=== PATIENT | female | born 1970 | race Caucasian/White ===

== ENCOUNTER → 2021-03-21 00:09 | Outpatient (CLI) | payer OTHER, SELFPAY ==
[2021-03-21 13:23] LABS: SARS-CoV-2 RNA PCR Negative
== END ==
PROVIDERS: PCP Physician Assistant; Visit Provider Internal Medicine Gastroenterology
DX: Z01.812 Encounter for preprocedural laboratory examination (principal); Z20.822 Contact with and (suspected) exposure to COVID-19
CPT/HCPCS: C9803; U0003; U0005

== ENCOUNTER 2021-03-24 00:20 | Day surgery (SDC) | payer OTHER, SELFPAY ==
[2021-03-12 13:14] VITALS: BMI 41.6
[2021-03-24 08:53] VITALS: BP 148/89; PULSE 102; RESP 18; TEMP 36.3; O2SAT 95; BMI 42.9
[2021-03-24] MEDS: LACTATED RINGERS 1,000 ML 150 ML IV CONT (09:09)
--- NOTE | 2021-03-24 09:19 | WPDANESEPPF ---
Anes - Initial Pre Proc Eval Procedure: Operation Date: 03/24/21 10:00 Proposed Procedures p Esophagogastroduodenoscopy & Screening Colonoscopy - Angus Mohan MD Date/Time: 03/24/21 09:19 Surgeon: Angus Mohan MD Pre Op Diagnosis: epigastric pain, nausea Patient Data Age: 50 Gender: F Height: 1.55 m Weight: 103 kg Last Vital Signs Temp 36.3 C L 03/24/21 08:53 Pulse 102 H 03/24/21 08:53 Resp 18 03/24/21 08:53 BP 148/89 H 03/24/21 08:53 Pulse Ox 95 03/24/21 08:53 Allergies Allergy/AdvReac Type Severity Reaction Status Date / Time No Known Allergies Allergy Verified 03/24/21 09:08 Home Medications Medication Instructions Recorded Confirmed Type albuterol sulfate 90 mcg/actuation 2 puff INHALATION Q4H PRN g 01/30/21 03/12/21 History aerosol inhaler docusate sodium 100 mg capsule 100 mg PO BID 01/30/21 03/12/21 History omeprazole 20 mg capsule,delayed 20 mg PO DAILY 01/30/21 03/12/21 History release polyethylene glycol 3350 17 17 g PO DAILY 01/30/21 03/12/21 History gram/dose oral powder psyllium husk (with sugar) 3.4 1 tbsp PO DAILY 01/30/21 03/12/21 History gram/12 gram oral powder Patient hx anesthesia problems: none Family hx anesthesia problems: none Results Review: All pre-operative results and documents have been reviewed as part of the pre-operative evaluation. [facility] Past Medical History Medical History Hepatic steatosis Obese Pre-diabetes Pulmonary emphysema Tobacco abuse Family History Family History Mother COPD (chronic obstructive pulmonary disease) Social History Social History Smoking packs per day: 1.5 Smoking cigarettes per day: 30.0 Years smoked: 27 Smoking pack-years: 40.50 Smoking status: Current every day smoker Tobacco type: cigarettes Living arrangements: with family Spiritual care concerns: No Anes - Eval Final PreProcedure Day of Procedure 03/24/21 09:19 Patient weight: morbidly obese Heart: regular rate and rhythm Lungs: decreased breath sounds Airway: Mallampati scale class II Neurological: alert and oriented Last oral intake: >/= 8 hours ASA classification: III Emergent: no Anesthetic plan: proceed Anesthesia type and monitoring: general GIVS and standard monitoring Results Review: All pre-operative results and documents have been reviewed as part of the pre-operative evaluation. Informed Consent: The patient's anesthetic plan and its attendant risks and benefits were discussed with the patient/family/POA. Questions were solicited and answers provided to the satisfaction of the patient/family/POA.
--- NOTE | 2021-03-24 09:49 | PM.HPGS ---
History of Present Illness History of Present Illness Consent: Risks, benefits, and alternatives have been discussed and questions answered. Patient agrees to proceed with procedure. Chief complaint: epigastric pain, nausea Narrative: Danielle Bergeron is a 50 year old female with nausea, epigastric pain and bloating using omeprazole, never had scopes. Review of Systems Constitutional: Constitutional: Denies headache(s) and Denies weakness Eyes: Eyes: Denies blurry vision ENT: Reports Normal hearing present, Denies headache(s) and Denies neck pain Cardiovascular: Cardiovascular: Denies chest pain and Denies dyspnea Respiratory: Respiratory: Denies dyspnea Gastrointestinal: Gastrointestinal: Reports no additional gastrointestinal complaints Genitourinary: Genitourinary: Denies dysuria Musculoskeletal: Musculoskeletal: Denies neck pain Integumentary/Breasts: Skin/Breast: Denies dry skin Neurologic: Reports Normal hearing present, Denies headache(s) and Denies weakness Psychiatric: Psychiatric: Denies anxiety Endocrine: Endocrine: Denies change in body appearance Hematologic/Lymphatic: Hematologic/Lymphatic: Denies easy bleeding Allergic/Immunologic: Allergic/Immunologic: Denies urticaria PMF Past Medical History Medical History (Updated 03/24/21 @ 09:50 by Angus Mohan MD) Colon cancer screening Hepatic steatosis Nausea Obese Pre-diabetes Pulmonary emphysema Tobacco abuse Family History Family History Mother COPD (chronic obstructive pulmonary disease) Social History Social History Smoking packs per day: 1.5 Smoking cigarettes per day: 30.0 Years smoked: 27 Smoking pack-years: 40.50 Smoking status: Current every day smoker Tobacco type: cigarettes Living arrangements: with family Spiritual care concerns: No Meds Home Medications and Allergies Home Medications Medication Instructions Recorded Confirmed Type albuterol sulfate 90 mcg/actuation 2 puff INHALATION Q4H PRN g 01/30/21 03/12/21 History aerosol inhaler docusate sodium 100 mg capsule 100 mg PO BID 01/30/21 03/12/21 History omeprazole 20 mg capsule,delayed 20 mg PO DAILY 01/30/21 03/12/21 History release polyethylene glycol 3350 17 17 g PO DAILY 01/30/21 03/12/21 History gram/dose oral powder psyllium husk (with sugar) 3.4 1 tbsp PO DAILY 01/30/21 03/12/21 History gram/12 gram oral powder Allergies Allergy/AdvReac Type Severity Reaction Status Date / Time No Known Allergies Allergy Verified 03/24/21 09:08 Vital Signs Vital Signs - 24 hr 03/24/21 08:53 Temperature 97.3 F L Pulse Rate 102 H Respiratory Rate 18 Blood Pressure 148/89 H Pulse Oximetry 95 Exam Const: General: comfortable and no acute distress HENMT: General nose exam: Normal nares present Eyes: General: appearance normal, both eyes and all related structures Neck: Neck: no JVD Resp: Auscultation: clear to auscultation bilaterally Cardio: Rate: regular rate Rhythm: regular rhythm GI: Inspection: non-distended GI Palp: Yes Soft to palpation Skin: General skin exam: normal color Neuro: General: gait normal Speech: normal speech Extrem: General: normal to inspection Psych: Mental Status: mental status grossly normal Assessment and Plan Assessment and plan (1) Nausea: Code(s): R11.0 - Nausea Status: Acute Assessment and Plan: egd with bx, check for pud, h pylori, celiac, etc (2) Colon cancer screening: Code(s): Z12.11 - Encounter for screening for malignant neoplasm of colon Status: Acute Assessment and Plan: colonoscopy
--- NOTE | 2021-03-24 10:06 | SUR.OPER ---
EGD ended at 1003. Colonoscopy started at 1008.
[2021-03-24 10:22] VITALS: BP 130/75; PULSE 81; RESP 22; O2SAT 95
[2021-03-24 10:32] VITALS: BP 126/93; PULSE 80; RESP 19; O2SAT 98
[2021-03-24 10:42] VITALS: BP 136/97; PULSE 71; RESP 27; O2SAT 99
== END 2021-03-24 10:59 | disposition home or self-care (01) ==
PROVIDERS: PCP Physician Assistant; Visit Provider Internal Medicine Gastroenterology
PROC: 0DJ08ZZ Inspection of Upper Intestinal Tract, Via Natural or Artificial Opening Endoscopic (ICD-10-PCS; CPT 43235; principal; 2021-03-24 10:00)
DX: Z12.11 Encounter for screening for malignant neoplasm of colon (principal); D12.3 Benign neoplasm of transverse colon; D12.2 Benign neoplasm of ascending colon; D12.4 Benign neoplasm of descending colon; K57.30 Diverticulosis of large intestine without perforation or abscess without bleeding; K64.4 Residual hemorrhoidal skin tags; K64.8 Other hemorrhoids; K21.00 Gastro-esophageal reflux disease with esophagitis, without bleeding; K44.9 Diaphragmatic hernia without obstruction or gangrene; K29.50 Unspecified chronic gastritis without bleeding; K76.0 Fatty (change of) liver, not elsewhere classified; R73.03 Prediabetes; E66.01 Morbid (severe) obesity due to excess calories; Z68.41 Body mass index [BMI] 40.0-44.9, adult; F17.210 Nicotine dependence, cigarettes, uncomplicated; Z79.51 Long term (current) use of inhaled steroids
CPT/HCPCS: 45385; 43239; 88305; J2704; J7120

== ENCOUNTER 2024-06-19 00:49 | Day surgery (SDC) | payer OTHER, SELFPAY ==
[2024-06-04 14:55] VITALS: BMI 37.5
--- OUTSIDE RECORDS SUMMARY | 2024-06-19 00:51 | XMS_ITS | CONTINUITY OF CARE DOCUMENT ---
Author Name laci aguero Address Unknown Organization [facility] Address [address] [place] [address] [address] [place] [address] Phone [phone] Care Team Providers Care Land Development Project Manager Name Role Phone Bibi NELSON, Og Unavailable CHELSIE CHOUDHURY Unavailable Kalani Morocho MD Unavailable PROBLEMS Condition Status Date Provider Notes Cardiology examination active Og malik MD Coronary atherosclerosis active Og tovar MD Smoker active Og Mtz MD Prediabetes active Og Mtz MD Obesity active Og Mtz MD Pulmonary nodule, RLL, stabl e since 06/2020 active Og Mtz MD Sinus tachycardia active Og Mtz MD Dyspnea on exertion active Og Bonilla Dyslipidemia active Og Mtz MD Abnormal EKG active Og Mtz MD ?CATE completed - Og Mtz MD CATE on CPAP active Og Mtz MD ENCOUNTERS Date Type Provider Location Encounter Diag nosis 06/01 - 06/02 In-person encounter Office Visit Og Mtz MD [facility] ?[facility] on CPAP 04/24 - 04/26 In-person encounter Office Visit Og Mtz MD [facility] 08/13 - 08/14 In-person encounter Office Visit Og Mtz MD [facility] 06/01 - 06/02 In-person encounter Office Visit Og Mtz MD [facility] Cardiology examinationCoronary atherosclerosisSmokerPrediabetesObesityPulmonary nodule, RLL, stable since inus tachycardiaDyspnea on exertionDyslipidemiaAbnormal EKG VITAL SIGNS Date Observation Value Provider Body Mass Index (Ratio) 44.96 kg/m2 Juarez Villalpando blood pressure, cuff size regular Ja blood pressure, diastolic 95 mm[Hg] Ja [facility] blood pressure, systolic 150 mm[Hg] Jar [facility] pulse rate 65 /min Brett respiratory rate E&M 18 /min Brett oxygen saturation, oximetry 94 % Brett weight E&M 238 [lb_av] Brett y height E&M 61 [in_i] [facility] y Body Mass Index (Ratio) 44.78 kg/m2 Fabricio Mtz MD blood pressure, cuff size regular Ced [facility] blood pressure, diastolic 89 mm[Hg] [facility] blood pressure, systolic 124 mm[Hg] [facility] 92 [facility]min [facility] oxygen saturation, oximetry 95 % [facility] respiratory rate E&M 18 /min Suad Choudhary iller weight E&M 237 [lb_av] [facility] height E&M 61 [in_i] [facility] Body Mass Index (Ratio) 41.94 kg/m2 Fabricio Mtz MD blood pressure, diastolic 96 mm[Hg] [place] [facility] blood pressure, systolic 155 mm[Hg] Consuelo [facility] blood pressure, diastolic 96 mm[Hg] Sa ra Cobb blood pressure, systolic 155 mm[Hg] Jesse a Cobb oxygen saturation, oximetry 95 % Carolina Cobb respiratory rate E&M 19 /min Carolina Si ms pulse rate 95 /min Carolina Cobb weight E&M 222 [lb_av] Carolina Cobb height E&M 61 [in_i] Carolina Cobb blood pressure, cuff size regular Sa ra Cobb ALLERGIES No Known Drug Allergies HISTORY OF MEDICATION USE Medication Status Instructions Dates Provider Indications Com ments Symbicort 160-4.5 mcg/actuation HFA aerosol inhaler active Inhale 2 puff using inhaler twice a day Remedios Ladariussupriya Chaudhary Ellipta 100-25 mcg/dose blister with device completed Inhale 1 puff as directed every morning 1 - 3 Josephine Foster PA Specialist albuterol sulfate 90 mcg/actuation HFA aerosol inhaler active Suad Ramos aspirin 81 mg tablet,delayed release (DR/EC) active Take 1 tablet by mouth once a day Og Mtz MD omeprazole 20 mg capsule,delayed release(DR/EC) active Take 1 capsule by mouth once a day Og Mtz MD lisinopril 20 mg tablet active Take 1 tablet by mouth once a day Og Mtz MD oxybutynin chloride 5 mg tablet extended release 24hr active Take 1 tablet by mouth once a day Og Mtz MD atorvastatin 20 mg tablet active Take 1 tablet by mouth once a day Og Mtz MD SOCIAL HISTORY Date Observation Value Provider smoking/tobacco cess ation, patient education and counseling yes Og Mtz MD smoking history, tot al pack/day 1-2 Og Mtz MD cigarette use yes Og Mtz MD smoking status Current every day smoker Aamir Mtz MD smoking/tobacco cess ation, patient education and counseling yes Suad Ramos smoking history, tot al pack/day 1-2 Suad Ramos cigarette use yes Suad Ramos smoking status Current every day smoker Meaghan Ramos social history E&M S moking History: P atient currently smokes every day. P atient has been counseled to quit. Puneet Villalpando smoking/tobacco cess ation, patient education and counseling yes Puneet Villalpando smoking history, tot al pack/day 1-2 Puneet Villalpando cigarette use yes Puneet Villalpando smoking status Current every day smoker Juanis arias Irasema social history reviewed E&M revi ewed - no changes required Puneet Villalpando number of grandchildren Og Mtz MD social history E&M S moking History: P atient currently smokes every day. P atient has been counseled to quit. Og Mtz MD smoking/tobacco cess ation, patient education and counseling yes Og Mtz MD social history reviewed E&M revi ewed - no changes required Og Mtz MD smoking history, tot al pack/day 1-2 Carolina Cobb cigarette use yes Carolina Cobb smoking status Current every day smoker S gabriel Cobb FUNCTIONAL STATUS Date Observation Value Provider HRA, CV Assess/Plan, Angina (inactive) Management Plan continue current therapy Puneet Villalpando HRA, CV Assess/Plan, Angina (inactive) Management Plan continue current therapy Og Mtz MD HRA, CV Assess/Plan, Angina (inactive) Management Plan continue current therapy Puneet Villalpando HRA, CV Assess/Plan, Angina (inactive) Management Plan continue current therapy Og Mtz MD INSURANCE PROVIDERS Payer name Policy type / Coverage type [place] [employer] party [place] [employer] Medicaid [id number] ADVANCE DIRECTIVES Name Date DISCUSSED - NO DECISION MADE TREATMENT PLAN Date Name Performer [id number],S, Puneet Villalpando [id number],S, Puneet Rubi [id number],S, Puneet Rubi [id number],S, Puneet [facility] [id number],S, H er updated medication list for this problem includes: Atorvastatin 20 Mg Tablet (Atorvastatin) ..... Take 1 tablet by mouth once a day Puneet Villalpando [id number],S, H er updated medication list for this problem includes: Lisinopril 10 Mg Tablet (Lisinopril) ..... Take 1 tablet by mouth once a day Aspirin 81 Mg Tablet,delayed Release (dr/ec) (Aspirin) ..... Take 1 tablet by mouth once a day Puneet Villalpando [id number],W, H er updated medication list for this problem includes: Atorvastatin 20 Mg Tablet (Atorvastatin) ..... Take 1 tablet by mouth once a day Og Mtz MD [id number],N, Og Marrufo ra, [place] [id number],S, T he Patient was reencouraged to stop smoking. Og Mtz MD [id number],N, H er updated medication list for this problem includes: Lisinopril 10 Mg Tablet (Lisinopril) ..... Take 1 tablet by mouth once a day Aspirin 81 Mg Tablet,delayed Release (dr/ec) (Aspirin) ..... Take 1 tablet by mouth once a day Og Mtz MD [id number],W, Og Marrufo ra, MD Cardiology Puneet Villalpando Cardiology Puneet Villalpando Cardiology Puneet Villalpando Cardiology Puneet Villalpando Cardiology: H er updated medication list for this problem includes: Atorvastatin 20 Mg Tablet (Atorvastatin) ..... Take 1 tablet by mouth once a day Puneet Villalpando Cardiology Puneet Villalpando Cardiology Og Bonilla Cardiology Og Bonilla Cardiology Og Bonilla Cardiology Og Bonilla Cardiology Og Bonilla Cardiology Og Bonilla Cardiology Og Bonilla [facility], labwork, 1 month f/u [facility], labwork, 1 month f/u [facility], labwork, 1 month f/u [facility], labwork, 1 month f/u [facility], labwork, 1 month f/u: H er updated medication list for this problem includes: Atorvastatin 20 Mg Tablet (Atorvastatin) ..... Take 1 tablet by mouth once a day [facility], [facility], 1 month f/u: H er updated medication list for this problem includes: Lisinopril 10 Mg Tablet (Lisinopril) ..... Take 1 tablet by mouth once a day Aspirin 81 Mg Tablet,delayed Release (dr/ec) (Aspirin) ..... Take 1 tablet by mouth once a day Puneet Villalpando Cardiology: H er updated medication list for this problem includes: Atorvastatin 20 Mg Tablet (Atorvastatin) ..... Take 1 tablet by mouth once a day Og Mtz MD Cardiology Og Bonilla Cardiology: T he Patient was reencouraged to stop smoking. Og Mtz MD Cardiology: H er updated medication list for this problem includes: Lisinopril 10 Mg Tablet (Lisinopril) ..... Take 1 tablet by mouth once a day Aspirin 81 Mg Tablet,delayed Release (dr/ec) (Aspirin) ..... Take 1 tablet by mouth once a day Og Mtz MD Cardiology Og Bonilla Date Name LIPID PANEL Stress Regadenoson LIPID PANEL Low Dose Lung CT DLCO - 46733 FRC - 74811 FVC - 96594 Stress Regadenoson Complete Echo LIPID PANEL D-DIMER, QUANTITATIV E PROBNP, N TERMINAL D-DIMER, QUANTITATIV E PROBNP, N TERMINAL Stress Regadenoson Complete Echo HISTORY OF PROCEDURES Procedure Date Procedure Name Provider Procedure Notes S tatus Counseling LDCT Og Mtz MD co mpleted EKG Og Mtz MD complet ed
--- OUTSIDE RECORDS SUMMARY | 2024-06-19 00:51 | XMS_ITS | Data Portability ---
Author Organization [place] [facility] [employer], Main Office Address [address] [place] [address] Assessment No assessment recorded. Plan of Treatment Reminders Order Date Submit Date Provider Last Modified By Organization Details Last Modified Time Details Appointments None record ed. Lab None record ed. Referral None record ed. Procedures None record ed. Surgeries None record ed. Imaging None record ed. Medication Orders None record ed. Patient TargetsNo targets recorded. Patient InstructionsNo instructions recorded. Reason for Referral None Reported. Problems Name Problem SNOMED Code Status Onset Date Resolution Date Notes Provider Name and Address Organization Details Recorded Time Chronic back pain 919097489 Active Not Available [facility] 3 17:44:00 Enlarged uterus 562351083 Active Not Available [facility] 3 17:44:00 Genuine stress incontinence 18387210 Active Not Available [facility] 3 17:44:00 Menometrorrha aldo 907772040 Active Not Available [facility] 3 17:44:00 Problem Notes None recorded. Medical Equipment None Reported. Medications Name Sig Start Date Stop Date Status Note LastModified by Organization Details LastModified Time azithromyci n 250 mg tablet active Not Available Not Available Not Available hydrocodone 5 mg-acetamin ophen 325 mg tablet TK 1 T PO Q 4 TO 6 H PRN P 06/10 completed Not Available Not Available Not Available phenazopyri dine 200 mg tablet active Not Available Not Available Not Available prednisone 20 mg tablet TK 1 T PO BID FOR 7 DAYS active Not Available Not Available No t Available penicillin V potassium 500 mg tablet active Not Available Not Available Not Available sulfamethox azole 800 mg-trimetho prim 160 mg tablet active Not Available Not Available Not Available oxycodone-a cetaminophe n 5 mg-325 mg tablet TK 1-2 TS PO Q 6 H PRN P active Not Available Not Available No t Available Kenalog 10 mg/mL suspension for injection In office injection administe red by the provider active [facility]: 0003- 0494- 20 Not Available Not Available Not Available benzonatate 100 mg capsule active Not Available Not Available Not Available pantoprazol e 40 mg tablet,neo yed release 10/03 completed Not Available Not Available Not Available naproxen sodium 550 mg tablet TK 1 T PO Q 12 HOURS active Not Available Not Available No t Available nystatin 100,000 unit/gram topical cream APPLY TOPICALLY TO THE AFFECTED AREA TWICE DAILY active Not Available Not Available No t Available misoprostol 200 mcg tablet TK 2 TS PO AT BEDTIME ONCE active Not Available Not Available No t Available omeprazole 20 mg capsule,del ayed release TAKE 1 CAPSULE BY MOUTH EVERY DAY active Not Available Not Available No t Available ibuprofen 600 mg tablet Take 1 tablet every 8 hours by oral route as needed. active Not Available Not Available No t Available methylpredn isolone 4 mg tablets in a dose pack 10/03 completed Not Available Not Available Not Available albuterol sulfate HFA 90 mcg/actuati on aerosol inhaler INHALE 2 PUFFS BY MOUTH EVERY 4 HOURS NEEDED active Not Available Not Available No t Available naproxen 500 mg tablet TAKE 1 TABLET BY MOUTH TWICE DAILY WITH FOOD 06/10 completed Not Available Not Available Not Available metoclopram rj 10 mg tablet 10/03 completed Not Available Not Available Not Available lidocaine (PF) 10 mg/mL (1 %) injection solution In office injection administe red by the provider active [facility]: 0409- 4276- 17 Not Available Not Available Not Available Vitals Date Recorded Body mass index (BMI) Body height Pain severity - 0-10 verbal numeric rating [Score] - Reported Body weight Provider Name and Address Organization Details Last Updated DateTime 06/10/2020 40.2 kg/m2 157.48 cm 5 72837.32 g Not Available [facility] 04/21/2022 17:43:29 Social History Question Answer Notes LastModified by Organizat ion Details LastModified Time Tobacco Smoking Status Current Every Day Smoker Not Available [facility] 04/21/2022 17:42:48 What Was The Date Of Your Most Recent Tobacco Screening? 06/10/2020 [id number] Information not available 04/21/2022 How Much Tobacco Do You Smoke? 1 PPW [id number] Information not available 04/21/2022 How Many Years Have You Smoked Tobacco? 35 [id number] Information not available 04/21/2022 Sex: Unknown Functional Status None recorded. Mental Status None recorded. Family History Relationship Description Onset Age of this Age Resolved Age Notes LastModified by Organization Details LastModified Time Father Family history of malignant neoplasm [id number] Not available 04/21/2022 17:42:51 Sister Family history of malignant neoplasm [id number] Not available 04/21/2022 17:42:51 Notes:Father's fm lung cance r - otherwise hx unknown sj Medical History Condition Response BLINDNESS N HEART VALVE DISORDERS N KIDNEY STONES N MRSA N CARPAL TUNNEL SYNDROME N ALLERGIES/HAYFEVER N INFECTIOUS DISEASE N LUNG DISEASE/DISORDER N HEART ARRHYTHMIA N HISTORY OF DRUG ABUSE N INSOMNIA N COPD N RADIATION / CHEMOTHERAPY N RHEUMATOID ARTHRITIS N HIGH CHOLESTEROL / HYPERLIPIDEMIA N BLOOD DISEASES N EDEMA N CHRONIC PAIN SYNDROME N CAROTID BLOCKAGE N SCHIZOPHRENIA N BOWEL PROBLEMS N DEPRESSION (INCLUDING POST ) N BACK / NECK PROBLEMS N HAVE YOU BEEN HOSPITALIZED OR SEEN IN [facility] IN THE PAST YEAR ? N STROKE/TIA N BURSITIS N ULCERS N BENIGN PROSTATIC HYPERPLASIA N HERNIATED DISC N DIALYSIS N OBESITY N GERD/NAUSEA N ANEURYSM N FIBROMYALGIA N OSTEOPOROSIS N URINARY/BLADDER/KIDNEY PROBLEMS N CORONARY ARTERY DISEASE (CAD) N ADDICTION CONCERNS N ARTHRITIS N USE OF BLOOD THINNERS N NO SIGNIFICANT PAST MEDICAL HISTORY N PERIPHERAL NEUROPATHY N SKIN PROBLEMS N DIABETES, TYPE N EMPHYSEMA N HEARTBURN / REFLUX N MUSCLE,JOINT OR BONE PROBLEMS N DVT N STOMACH ULCERS N BLOOD CLOTS N HEPATITIS / LIVER DISEASE N USE OF NSAIDS N CONCUSSION OR SPINAL TRAUMA N GOUT N SLEEP DISORDER N ALZHEIMER'S DISEASE N HERPES N HEADACHES/MIGRAINES N SEIZURES/EPILEPSY N VASCULAR DISEASE N Blood Disorder N DIZZINESS N HEAD TRAUMA OR INJURY N HEART DISEASE/HEART PROBLEMS N NEUROPATHY N AIDS/HIV N FRACTURES N MULTIPLE SCLEROSIS N HYPERTENSION N CARDIAC ARRHYTHMIA N CANCER: SPECIFY N ANXIETY DISORDER N Metal allergy N BLOOD TRANSFUSION N ANESTHESIA COMPLICATIONS N ANEMIA/BLOOD DISORDER N ATRIAL FIBRILLATION N BIPOLAR DISORDER N BRONCHITIS N AUTOIMMUNE DISEASE N OSTEOARTHRITIS N TUBERCULOSIS N FOOT PROBLEM N Gynecological HistoryNo gynecological history recorded. Obstetrics History GPAL:G 0 P 0 0 0 0 Past Encounters Encounter ID Performer Location Encounter Start Date Encounter Closed Date Diagnosis/Indication Diagnosis SNOMED-CT Code Diagnosis ICD10 Code Diagnosis Note [id number] [facility] [address] [place] [address] 06/10/2020 00:00:00 06/10/2020 10:32:33 Health Concerns Section Related Observation LastModified by Organization Detai ls LastModified Time None Recorded Concern Status LastModified by Organization Details LastModified Time None Recorded Advance Directives Directive None Recorded Payers None recorded. OBGyn Episode No OBEpisode recorded.
--- OUTSIDE RECORDS SUMMARY | 2024-06-19 00:51 | XMS_ITS | Continuity of Care Document ---
Author Organization [facility] Address [address] [place] [address] [place] [address] Phone Care Team Providers Care Construction Millwright Name Role Phone Mike Allen MD Unavailable Unavailable Advance Directives Directive Yes / No Effective Date File Name No Information Encounters Encounter Description Practice Location Reason(s) For Visit Diagnoses Date Provider Providers Copied on Encounter [facility], [address] [place], [id number], [place] tel:[phone] [facility] No Information Alejandro Mckeon. [address] [facility] [place], [id number], [place]. tel:[phone] Family History Family Member Type Diagnosis Age At Onset No Information Payers Payer name Insurance type Covered democrat ID Authoriza tion(s) No Information Social History Type Description Quantity Date Captured Comments Sex Female Smoking Status No Information Chief Complaint And Reason For Visit No Information Plan Of Treatment Date Type Action Status No Information History Of Present Illness Encounter Date Complaint History Of Prese nt Illness No Information Instructions Date Instruction Additional Infor mation No Information Assessments Type Assessment Date No Information
--- OUTSIDE RECORDS SUMMARY | 2024-06-19 00:51 | XMS_ITS | Data Portability ---
Author Organization [facility] Address [address] [place] [address] Care Team Providers Care Lease Buyer Name Role Phone SANDRASTACEYTaylor CHELSIE Primary Care Provider Assessment No assessment recorded. Plan of Treatment Reminders Order Date Submit Date Provider Last Modified By Organization Details Last Modified Time Details Appointments ANY 30 2024 10:30A M Kalani Morocho MD Not available Not available Not available Lab urinalys is, dipstick 2024 025 adolph In-Office Order, Internal Use Only DO Not Attach Compendium DO Not Attach Compendium, Do Not Delete/merge, [id number] 05/01/2024 09:13:25 culture, urine 2024 025 [facility], [address] [place] [address], [address], [place], [address], 05/02/2024 06:22:14 lipid panel, serum 2024 025 [facility], [address] [place] [address], [address], [place], [address], 04/27/2024 10:18:03 TSH, ultra-se nsitive, serum 2024 025 [facility], [address] [place] [address], [address], [place], [address], 04/27/2024 10:18:06 urinalys is complete , reflex culture 2024 025 [facility], [address], [address], [place], [address], 04/27/2024 10:18:07 CMP, serum or plasma 2024 025 [facility], [address], [address], [place], [address], 04/27/2024 10:18:04 CBC 2024 025 [facility], [address], [address], [place], [address], 04/27/2024 10:18:09 albumin/ creatini ne, mass ratio, urine 2024 025 [facility], [address], [address], [place], [address], 04/27/2024 10:18:02 lipid panel, serum 2023 024 [facility], [address], [address], [place], [address], 04/21/2023 06:18:50 CMP, serum or plasma 2023 024 [facility], [address], [address], [place], [address], 04/21/2023 06:18:51 CBC 2023 024 [facility], [address], [address], [place], [address], 04/21/2023 06:18:52 HbA1c (hemoglo bin A1c), blood 2023 024 [facility], [address], [address], [place], [address], 04/21/2023 06:18:51 urinalys is, dipstick 2023 024 [facility], [address], [address], [place], [address], 04/20/2023 19:08:34 HbA1c (hemoglo bin A1c), blood 2022 023 [email or web address] 1 In-Office Order, Internal Use Only DO Not Attach Compendium DO Not Attach Compendium, Do Not Delete/merge, [id number] 09/09/2022 09:44:25 Referral None recorded . Procedures None recorded . Surgeries None recorded . Imaging MAMMO, screenin g, bilatera l 2022 023 [facility] ([facility]), [address] [place], [address], 05/27/2023 11:31:45 LDCT, chest, for lung cancer screenin g 2022 023 [facility] ([facility]), [address] [place], [address], 11/25/2022 13:22:33 Medication Orders nicotine 21 mg/24 hr daily transder mal patch 2024 025 [facility][id number], [address], [place], [id number], 04/18/2024 19:21:04 nicotine 14 mg/24 hr daily transder mal patch 2024 025 [facility] #[id number], [address], [place], [id number], 04/18/2024 19:21:05 omeprazo le 20 mg capsule, delayed release 2024 025 [facility] #[id number], [address], [place], [place], [id number], 04/12/2024 11:14:41 Flonase Allergy Relief 50 mcg/actu ation nasal spray,garcia spension 2024 025 [facility] #75252, [address], [place], [place], [id number], 04/12/2024 11:14:40 aspirin 81 mg tablet,d elayed release 2024 025 [facility] #06208, [address], [place], [place], [id number], 04/12/2024 11:14:44 metformi n 500 mg tablet 2024 025 [facility] #58055, [address], [place], [place], [id number], 04/12/2024 11:14:50 albutero l sulfate HFA 90 mcg/actu ation aerosol inhaler 2024 025 [facility] #10025, [address], [place], [place], [id number], 04/12/2024 11:14:45 Advair HFA 230 mcg-21 mcg/actu ation aerosol inhaler 2024 025 [facility] #89908, [address], [place], [place], [id number], 04/12/2024 11:14:47 atorvast atin 40 mg tablet 2024 025 [facility] #07182, [address], [place], [place], [id number], 04/12/2024 11:14:41 lisinopr il 20 mg tablet 2024 025 [facility] #16673, [address], [place], [place], [id number], 04/12/2024 11:14:48 omeprazo le 20 mg capsule, delayed release 2023 024 [facility] #32834, [address], [place], [place], [id number], 04/20/2023 10:04:22 aspirin 81 mg tablet,d elayed release 2023 024 [facility] #68876, [address], [place], [place], [id number], 04/20/2023 10:04:22 albutero l sulfate HFA 90 mcg/actu ation aerosol inhaler 2023 024 [facility] #25032, [address], [place], [place], [id number], 04/20/2023 10:04:21 aspirin 81 mg tablet,d elayed release 2022 023 [email or web address] 1 [facility] #82756, [address], [place], [place], [id number], 09/09/2022 09:44:25 lisinopr il 10 mg tablet 2022 023 [email or web address] [facility] #89980, [address], [place], [place], [id number], 06/03/2023 17:51:34 atorvast atin 20 mg tablet 2022 023 [facility]370, [address], [place], [place], [id number], 04/12/2024 10:07:25 Patient TargetsNo targets recorded. Patient Instructions Encounter Date Encounter Id Patient Instructions Last Modified By Organization Details Last Modified Time 09/09/2022 [id number] A healthy lifestyle: care instructions Not available 09/09/2022 09:44:25 Quitting Tobacco : Care Instructions Not available 09/09/2022 09:44:25 AUGUST Nunez Discussed with FRANCISCO [email or web address] Not available 09/09/2022 09:44:03 12/17/2022 [id number] A healthy lifestyle: care instructions Not available 12/17/2022 10:58:45 Quitting Tobacco : Care Instructions Not available 12/17/2022 10:58:45 learning about breast cancer screening Not available 12/17/2022 10:59:01 Kayd KOCH Discussed with Sarah [email or web address] Not available 12/17/2022 11:25:38 04/12/2024 [id number] A healthy lifestyle: care instructions [email or web address] Not available 04/12/2024 11:14:29 Reason for Referral None Reported. Results Created Date Observation Date Name Description Value Unit Range Abnormal Flag Note LastModifiedBy Organization Detail LastModifiedTime 09/10/1909/09/2022 HbA1c (hemo globi n A1c), blood HbA1c 6.0% Not Available In-Office Order Internal Use Only DO Not Attach Compendium DO Not Attach Compendium, Do Not Delete/merge, [id number] 09/09/2022 09:25:35 04/20/1904/20/2023 URINA LYSIS , ROUTI NE specific gravity See below: 1.005- 1.030 abnormal <=1.0 05 Not Available [facility] [address] [place], [address], 04/20/2023 19:08:34 04/20/19 24 04/20/2023 URINA LYSIS , ROUTI NE pH 6.5 5.0-7. 0 Not Available [facility] [address] [place], [address], 04/20/2023 19:08:34 04/20/19 24 04/20/2023 URINA LYSIS , ROUTI NE urine-color YELLOW yellow Not Available [facility] [address], [place], [address], 04/20/2023 19:08:34 04/20/19 24 04/20/2023 URINA LYSIS , ROUTI NE appearance CLEAR Not Available [facility] [address], [place], [address], 04/20/2023 19:08:34 04/20/19 24 04/20/2023 URINA LYSIS , ROUTI NE WBC esterase Commen t NEGAT RIP Not Available [facility] [address], [place], [address], 04/20/2023 19:08:34 04/20/19 24 04/20/2023 URINA LYSIS , ROUTI NE protein Commen t NEGAT RIP Not Available [facility] [address], [place], [address], 04/20/2023 19:08:34 04/20/19 24 04/20/2023 URINA LYSIS , ROUTI NE glucose Commen t NEGAT RIP Not Available [facility] [address], [place], [address], 04/20/2023 19:08:34 04/20/19 24 04/20/2023 URINA LYSIS , ROUTI NE ketones Commen t NEGAT RIP Not Available [facility] [address], [place], [address], 04/20/2023 19:08:34 04/20/19 24 04/20/2023 URINA LYSIS , ROUTI NE occult blood Commen t NEGAT RIP Not Available [facility] [address], [place], [address], 04/20/2023 19:08:34 04/20/19 24 04/20/2023 URINA LYSIS , ROUTI NE bilirubin Commen t NEGAT RIP Not Available [facility] [address], [place], [address], 04/20/2023 19:08:34 04/20/19 24 04/20/2023 URINA LYSIS , ROUTI NE urobilinogen ,semi-qn 0.2 eu/dL 0.2-1. 0 Not Available [facility] [address], [place], [address], 04/20/2023 19:08:34 04/20/19 24 04/20/2023 URINA LYSIS , ROUTI NE nitrite, urine Commen t negati ve NEGAT RIP Not Available [facility] [address] [facility], [place], [address], 04/20/2023 19:08:34 04/20/19 24 04/21/2023 LIPID PANEL cholesterol, total 197 mg/dL 100-19 9 Not Available [facility] ([facility]) [address] [place], [address], 04/21/2023 06:18:50 04/20/19 24 04/21/2023 LIPID PANEL triglyceride s 195 mg/dL 0-149 above high normal Not Available [facility] ([facility]) [address] [place], [address], 04/21/2023 06:18:50 04/20/19 24 04/21/2023 LIPID PANEL HDL cholesterol 41 mg/dL >39 Not Available [facility]) [address] [place], [address], 04/21/2023 06:18:50 04/20/19 24 04/21/2023 LIPID PANEL VLDL cholesterol pamela 34 mg/dL 5-40 Not Available [facility]) [address] [place], [address], 04/21/2023 06:18:50 04/20/19 24 04/21/2023 LIPID PANEL LDL chol calc ([facility]) 122 mg/dL 0-99 above high normal Not Available [facility] ([facility]) [address] [place], [address], 04/21/2023 06:18:50 04/20/19 24 04/21/2023 COMP. METAB OLIC PANEL (14) glucose 86 mg/dL 70-99 Not Available [facility] ([facility]) [address] [place], [address], 04/21/2023 06:18:51 04/20/19 24 04/21/2023 COMP. METAB OLIC PANEL (14) BUN 14 mg/dL 6-24 Not Available [facility] ([facility]) [address] [place], [address], 04/21/2023 06:18:51 04/20/19 24 04/21/2023 COMP. METAB OLIC PANEL (14) creatinine 0.69 mg/dL 0.57-1 .00 Not Available [facility] ([facility]) [address] [place], [address], 04/21/2023 06:18:51 04/20/19 24 04/21/2023 COMP. METAB OLIC PANEL (14) eGFR 103 mL/mi n/1.7 3 >59 Not Available [facility] ([facility]) [address] [place], [address], 04/21/2023 06:18:51 04/20/19 24 04/21/2023 COMP. METAB OLIC PANEL (14) BUN/creatini ne ratio 10 11- Not Available [facility] ([facility]) [address] [place], [address], 04/21/2023 06:18:51 04/20/19 24 04/21/2023 COMP. METAB OLIC PANEL (14) sodium 139 mmol/ L 134-14 4 Not Available [facility] ([facility]) [address] [facility] [place], [address], 04/21/2023 06:18:51 04/20/19 24 04/21/2023 COMP. METAB OLIC PANEL (14) potassium 4.6 mmol/ L 3.5-5. 2 Not Available [facility] ([facility] [address] [facility] [place], [address], 04/21/2023 06:18:51 04/20/19 24 04/21/2023 COMP. METAB OLIC PANEL (14) chloride 102 mmol/ L 96-106 Not Available [facility] ([facility]) [address] [facility] [place], [address], 04/21/2023 06:18:51 04/20/19 24 04/21/2023 COMP. METAB OLIC PANEL (14) carbon dioxide, total 24 mmol/ L 20- Not Available [facility] ([facility]) [address] [facility] [place], [address], 04/21/2023 06:18:51 04/20/19 24 04/21/2023 COMP. METAB OLIC PANEL (14) calcium 10.1 mg/dL 8.7-10 .2 Not Available [facility] ([facility]) [address] [facility] [place], [address], 04/21/2023 06:18:51 04/20/19 24 04/21/2023 COMP. METAB OLIC PANEL (14) protein, total 7.1 g/dL 6.0-8. 5 Not Available [facility] ([facility]) [address] [facility] [place], [address], 04/21/2023 06:18:51 04/20/19 24 04/21/2023 COMP. METAB OLIC PANEL (14) albumin 4.3 g/dL 3.8-4. 9 Not Available [facility] ([facility]) [address] [facility], [place], [address], 04/21/2023 06:18:51 04/20/19 24 04/21/2023 COMP. METAB OLIC PANEL (14) globulin, total 2.8 g/dL 1.5-4. 5 Not Available [facility] ([place] [place] [facility]) [address] [place], [address], 04/21/2023 06:18:51 04/20/19 24 04/21/2023 COMP. METAB OLIC PANEL (14) A/G ratio 1.5 1.2-2. 2 Not Available [facility] ([facility]) [address] [place], [address], 04/21/2023 06:18:51 04/20/19 24 04/21/2023 COMP. METAB OLIC PANEL (14) bilirubin, total 0.2 mg/dL 0.0-1. 2 Not Available [facility] ([facility]) [address] [place], [address], 04/21/2023 06:18:51 04/20/19 24 04/21/2023 COMP. METAB OLIC PANEL (14) alkaline phosphatase 102 IU/L 44-121 Not Available [facility]) [address] [place], [address], 04/21/2023 06:18:51 04/20/19 24 04/21/2023 COMP. METAB OLIC PANEL (14) AST (SGOT) 16 IU/L 0-40 Not Available [facility] [address] [facility] [place], [address], 04/21/2023 06:18:51 04/20/19 24 04/21/2023 COMP. METAB OLIC PANEL (14) ALT (SGPT) 15 IU/L 0-32 Not Available [facility] ([facility]) [address] [facility] [place], [address], 04/21/2023 06:18:51 04/20/19 24 04/21/2023 HEMOG LOBIN A1C hemoglobin A1C 5.9 % 4.8-5. 6 above high normal Predi abete s: 5.7 - 6.4 Diabe tamika: >6.4 Glyce jacqueline contr ol for adult s with diabe tamika: <7.0 Not Available [facility] ([facility]) [address] [place], [address], 04/21/2023 06:18:51 04/20/19 24 04/20/2023 CBC, PLATE LET, NO DIFFE RENTI AL WBC 11.2 x10e3 /uL 3.4-10 .8 above high normal Not Available [facility] ([facility]) [address] [place], [address], 04/21/2023 06:18:52 04/20/19 24 04/20/2023 CBC, PLATE LET, NO DIFFE RENTI AL RBC 5.16 x10e6 /uL 3.77-5 .28 Not Available [facility] ([facility]) [address] [place], [address], 04/21/2023 06:18:52 04/20/19 24 04/20/2023 CBC, PLATE LET, NO DIFFE RENTI AL hemoglobin 15.4 g/dL 11.1-1 5.9 Not Available [facility] ([facility]) [address] [place], [address], 04/21/2023 06:18:52 04/20/19 24 04/20/2023 CBC, PLATE LET, NO DIFFE RENTI AL hematocrit 46.7 % 34.0-4 6.6 above high normal Not Available [facility] ([facility]) [address] [place], [address], 04/21/2023 06:18:52 04/20/19 24 04/20/2023 CBC, PLATE LET, NO DIFFE RENTI AL MCV 91 fL 79-97 Not Available [facility] ([facility]) [address] [facility], [place], [address], 04/21/2023 06:18:52 04/20/19 24 04/20/2023 CBC, PLATE LET, NO DIFFE RENTI AL MCH 29.8 pg 26.6-3 3.0 Not Available [facility] ([facility]) [address] [place], [address], 04/21/2023 06:18:52 04/20/19 24 04/20/2023 CBC, PLATE LET, NO DIFFE RENTI AL MCHC 33.0 g/dL 31.5-3 5.7 Not Available [facility] ([facility]) [address] [facility], [place], [address], 04/21/2023 06:18:52 04/20/19 24 04/20/2023 CBC, PLATE LET, NO DIFFE RENTI AL RDW 13.2 % 11.7-1 5.4 Not Available [facility] ([facility]) [address] [place], [address], 04/21/2023 06:18:52 04/20/19 24 04/20/2023 CBC, PLATE LET, NO DIFFE RENTI AL platelets 296 x10e3 /uL 150-45 0 Not Available [facility] ([facility]) [address] [place], [address], 04/21/2023 06:18:52 04/27/1904/27/2024 ALBUM IN/CR EATIN INE RATIO ,URIN E creatinine, urine 41.0 mg/dL notest ab. Not Available [facility] ([facility]) [address] [place], [address], 04/27/2024 10:18:01 04/27/19 25 04/27/2024 ALBUM IN/CR EATIN INE RATIO ,URIN E albumin, urine <3.0 ug/mL notest ab. Not Available [facility] ([facility]) [address] [facility], [place], [address], 04/27/2024 10:18:01 04/27/19 25 04/27/2024 ALBUM IN/CR EATIN INE RATIO ,URIN E alb/creat ratio <7 Sharonda l: 0 - 29 Moder ately incre ased: 30 - 300 Sever roro incre ased: >300 Not Available [facility] ([facility]) [address] [place], [address], 04/27/2024 10:18:01 04/27/19 25 04/27/2024 LIPID PANEL cholesterol, total 132 mg/dL 100-19 9 Not Available [facility] ([facility]) [address] [facility], [place], [address], 04/27/2024 10:18:03 04/27/19 25 04/27/2024 LIPID PANEL triglyceride s 76 mg/dL 0-149 Not Available [facility] ([facility]) [address] [place], [address], 04/27/2024 10:18:03 04/27/19 25 04/27/2024 LIPID PANEL HDL cholesterol 43 mg/dL >39 Not Available [facility]) [address] [place], [address], 04/27/2024 10:18:03 04/27/19 25 04/27/2024 LIPID PANEL VLDL cholesterol pamela 15 mg/dL 5-40 Not Available [facility]) [address] [place], [address], 04/27/2024 10:18:03 04/27/19 25 04/27/2024 LIPID PANEL LDL chol calc ([facility]) 74 mg/dL 0-99 Not Available [facility]) [address] [place], [address], 04/27/2024 10:18:03 04/27/19 25 04/27/2024 COMP. METAB OLIC PANEL (14) glucose 107 mg/dL 70-99 above high normal Not Available [facility] ([facility]) [address] [place], [address], 04/27/2024 10:18:04 04/27/19 25 04/27/2024 COMP. METAB OLIC PANEL (14) BUN 10 mg/dL 6-24 Not Available [facility] ([facility]) [address] [place], [address], 04/27/2024 10:18:04 04/27/19 25 04/27/2024 COMP. METAB OLIC PANEL (14) creatinine 0.67 mg/dL 0.57-1 .00 Not Available [facility] ([facility]) [address] [place], [address], 04/27/2024 10:18:04 04/27/19 25 04/27/2024 COMP. METAB OLIC PANEL (14) eGFR 103 mL/mi n/1.7 3 >59 Not Available [facility] ([facility]) [address] [place], [address], 04/27/2024 10:18:04 04/27/19 25 04/27/2024 COMP. METAB OLIC PANEL (14) BUN/creatini ne ratio 15 9-23 Not Available [facility]) [address] [place], [address], 04/27/2024 10:18:04 04/27/19 25 04/27/2024 COMP. METAB OLIC PANEL (14) sodium 142 mmol/ L 134-14 4 Not Available [facility] ([facility]) [address] [place], [address], 04/27/2024 10:18:04 04/27/19 25 04/27/2024 COMP. METAB OLIC PANEL (14) potassium 4.3 mmol/ L 3.5-5. 2 Not Available [facility] ([facility]) [address] [place], [address], 04/27/2024 10:18:04 04/27/19 25 04/27/2024 COMP. METAB OLIC PANEL (14) chloride 101 mmol/ L 96-106 Not Available [facility] ([facility]) [address] [place], [address], 04/27/2024 10:18:04 04/27/19 25 04/27/2024 COMP. METAB OLIC PANEL (14) carbon dioxide, total 23 mmol/ L 20-29 Not Available [facility] ([facility]) [address] [place], [address], 04/27/2024 10:18:04 04/27/19 25 04/27/2024 COMP. METAB OLIC PANEL (14) calcium 9.8 mg/dL 8.7-10 .2 Not Available [facility] ([facility]) [address] [place], [address], 04/27/2024 10:18:04 04/27/19 25 04/27/2024 COMP. METAB OLIC PANEL (14) protein, total 7.3 g/dL 6.0-8. 5 Not Available [facility] ([facility] [address] [facility] [place], [address], 04/27/2024 10:18:04 04/27/19 25 04/27/2024 COMP. METAB OLIC PANEL (14) albumin 4.4 g/dL 3.8-4. 9 Not Available [facility] ([facility]) [address] [facility] [place], [address], 04/27/2024 10:18:04 04/27/19 25 04/27/2024 COMP. METAB OLIC PANEL (14) globulin, total 2.9 g/dL 1.5-4. 5 Not Available [facility] ([facility]) [address] [facility] [place], [address], 04/27/2024 10:18:04 04/27/19 25 04/27/2024 COMP. METAB OLIC PANEL (14) bilirubin, total 0.3 mg/dL 0.0-1. 2 Not Available [facility] ([facility]) [address] [facility] [place], [address], 04/27/2024 10:18:04 04/27/19 25 04/27/2024 COMP. METAB OLIC PANEL (14) alkaline phosphatase 122 IU/L 44-121 above high normal Not Available [facility] ([facility]) [address] [facility] [place], [address], 04/27/2024 10:18:04 04/27/19 25 04/27/2024 COMP. METAB OLIC PANEL (14) AST (SGOT) 12 IU/L 0-40 Not Available [facility] ([facility]) [address] [facility], [place], [address], 04/27/2024 10:18:04 04/27/19 25 04/27/2024 COMP. METAB OLIC PANEL (14) ALT (SGPT) 13 IU/L 0-32 Not Available [facility] ([facility]) [address] [facility] [place], [address], 04/27/2024 10:18:04 04/27/19 25 04/27/2024 MICRO SCOPI C EXAMI NATIO N WBC None seen /hpf 0-5 Not Available [facility] ([facility]) [address] [facility], [place], [address], 04/27/2024 10:18:06 04/27/19 25 04/27/2024 MICRO SCOPI C EXAMI NATIO N RBC None seen /hpf 0-2 Not Available [facility] ([facility]) [address] [facility] [place], [address], 04/27/2024 10:18:06 04/27/19 25 04/27/2024 MICRO SCOPI C EXAMI NATIO N epithelial cells (non renal) 0-10 /hpf 0-10 Not Available [facility] ([facility]) [address] [facility], [place], [address], 04/27/2024 10:18:06 04/27/19 25 04/27/2024 MICRO SCOPI C EXAMI NATIO N casts None seen /lpf nonese en Not Available [facility] ([facility]) [address] [facility], [place], [address], 04/27/2024 10:18:06 04/27/19 25 04/27/2024 MICRO SCOPI C EXAMI NATIO N bacteria None seen nonese en/few Not Available [facility] ([facility]) [address] [facility], [place], [address], 04/27/2024 10:18:06 04/27/19 25 04/27/2024 TSH RFX ON ABNOR MAL TO FREE T4 TSH 2.830 uIU/m L 0.450- 4.500 Not Available [facility] ([facility]) [address] [facility], [place], [address], 04/27/2024 10:18:06 04/27/19 25 04/27/2024 UA/M W/RFL X CULTU RE, ROUTI NE specific gravity 1.009 1.005- 1.030 Not Available [facility] ([facility]) [address] [facility], [place], [address], 04/27/2024 10:18:07 04/27/19 25 04/27/2024 UA/M W/RFL X CULTU RE, ROUTI NE pH 6.0 5.0-7. 5 Not Available [facility] ([facility]) [address] [facility], [place], [address], 04/27/2024 10:18:07 04/27/19 25 04/27/2024 UA/M W/RFL X CULTU RE, ROUTI NE urine-color YELLOW yellow Not Available [facility] ([facility]) [address] [place], [address], 04/27/2024 10:18:07 04/27/19 25 04/27/2024 UA/M W/RFL X CULTU RE, ROUTI NE appearance CLEAR clear Not Available [facility] ([facility]) [address] [place], [address], 04/27/2024 10:18:07 04/27/19 25 04/27/2024 UA/M W/RFL X CULTU RE, ROUTI NE WBC esterase NEGATI VE negati ve Not Available [facility] ([facility]) [address] [facility], [place], [address], 04/27/2024 10:18:07 04/27/19 25 04/27/2024 UA/M W/RFL X CULTU RE, ROUTI NE protein NEGATI VE negati ve/tra ce Not Available [facility] ([facility]) [address] [place], [address], 04/27/2024 10:18:07 04/27/19 25 04/27/2024 UA/M W/RFL X CULTU RE, ROUTI NE glucose NEGATI VE negati ve Not Available [facility] ([facility]) [address] [place], [address], 04/27/2024 10:18:07 04/27/19 25 04/27/2024 UA/M W/RFL X CULTU RE, ROUTI NE ketones NEGATI VE negati ve Not Available [facility] ([facility]) [address] [place], [address], 04/27/2024 10:18:07 04/27/19 25 04/27/2024 UA/M W/RFL X CULTU RE, ROUTI NE occult blood NEGATI VE negati ve Not Available [facility] ([facility]) [address] [facility], [place], [address], 04/27/2024 10:18:07 04/27/19 25 04/27/2024 UA/M W/RFL X CULTU RE, ROUTI NE bilirubin NEGATI VE negati ve Not Available [facility] ([facility]) [address] [facility], [place], [address], 04/27/2024 10:18:07 04/27/19 25 04/27/2024 UA/M W/RFL X CULTU RE, ROUTI NE urobilinogen ,semi-qn 0.2 mg/dL 0.2-1. 0 Not Available [facility] ([facility]) [address] [facility], [place], [address], 04/27/2024 10:18:07 04/27/19 25 04/27/2024 UA/M W/RFL X CULTU RE, ROUTI NE nitrite, urine NEGATI VE negati ve Not Available [facility] ([facility]) [address] [facility], [place], [address], 04/27/2024 10:18:07 04/27/19 25 04/27/2024 UA/M W/RFL X CULTU RE, ROUTI NE microscopic examination COMMEN T Micro scopi c follo ws if indic ated. Not Available [facility] ([facility]) [address], [place], [address], 04/27/2024 10:18:07 04/27/19 25 04/27/2024 UA/M W/RFL X CULTU RE, ROUTI NE microscopic examination SEE BELOW: Micro scopi c was indic ated and was perfo rmed. Not Available [facility] ([facility]) [address], [place], [address], 04/27/2024 10:18:07 04/27/19 25 04/27/2024 UA/M W/RFL X CULTU RE, ROUTI NE urinalysis reflex COMMEN T This speci men will not refle x to a Urine Cultu re. Not Available [facility] ([facility]) [address] [place], [address], 04/27/2024 10:18:07 04/27/19 25 04/27/2024 CBC, PLATE LET, NO DIFFE RENTI AL WBC 12.1 x10e3 /uL 3.4-10 .8 above high normal Not Available [facility] ([facility]) [address] [place], [address], 04/27/2024 10:18:04/27/1904/27/2024 CBC, PLATE LET, NO DIFFE RENTI AL RBC 5.31 x10e6 /uL 3.77-5 .28 above high normal Not Available [facility] ([facility]) [address] [place], [address], 04/27/2024 10:18:09 04/27/19 25 04/27/2024 CBC, PLATE LET, NO DIFFE RENTI AL hemoglobin 15.6 g/dL 11.1-1 5.9 Not Available [facility] ([facility]) [address] [place], [address], 04/27/2024 10:18:04/27/19 25 04/27/2024 CBC, PLATE LET, NO DIFFE RENTI AL hematocrit 48.1 % 34.0-4 6.6 above high normal Not Available [facility] ([facility]) [address] [place], [address], 04/27/2024 10:18:04/27/19 25 04/27/2024 CBC, PLATE LET, NO DIFFE RENTI AL MCV 91 fL 79-97 Not Available [facility] ([facility]) [address] [place], [address], 04/27/2024 10:18:09 04/27/19 25 04/27/2024 CBC, PLATE LET, NO DIFFE RENTI AL MCH 29.4 pg 26.6-3 3.0 Not Available [facility] ([facility]) [address] [place], [address], 04/27/2024 10:18:09 04/27/19 25 04/27/2024 CBC, PLATE LET, NO DIFFE RENTI AL MCHC 32.4 g/dL 31.5-3 5.7 Not Available [facility] ([facility]) [address] [place], [address], 04/27/2024 10:18:09 04/27/19 25 04/27/2024 CBC, PLATE LET, NO DIFFE RENTI AL RDW 13.0 % 11.7-1 5.4 Not Available [facility] ([facility]) [address] [place], [address], 04/27/2024 10:18:09 04/27/19 25 04/27/2024 CBC, PLATE LET, NO DIFFE RENTI AL platelets 292 x10e3 /uL 150-45 0 Not Available [facility] ([facility]) [address] [place], [address], 04/27/2024 10:18:09 05/01/19 25 05/02/2024 URINE CULTU REELIZABETH urine culture, routine FINAL REPORT abnormal Not Available [facility] ([facility]) [address] [place], [address], 05/02/2024 06:22:14 05/01/19 25 05/02/2024 URINE CULTU REELIZABETH result 1 COMMEN T abnormal Beta hemol ytic Strep tococ cus, group B Penic illin and ampic illin are drugs of choi e for treat ment of beta- hemol ytic strep tococ pamela infec tions . Susce ptibi lity testi ng of penic illin s and other beta- lacta m agent s appro oly by the FDA for treat ment of beta- hemol ytic strep tococ pamela infec tions need not be perfo rmed routi nicholas becau se nonsu scept ible isola tamika are extre sparkle rare in any beta- hemol ytic strep tococ cus and have not been repor fawn for Strep tococ cus pyoge brendon (grou p A). (CLSI ) Great er than 100,0 00 colon y formi ng units per mL Not Available [facility] ([facility]) [address], [place], [address], 05/02/2024 06:22:14 05/01/1904/30/2024 urina lysis , dipst ick Leukocytes Negati ve Not Available In-Office Order Internal Use Only DO Not Attach Compendium DO Not Attach Compendium, Do Not Delete/merge, 04/30/2024 13:53:44 05/01/1904/30/2024 urina lysis , dipst ick Nitrite negati ve Not Available In-Office Order Internal Use Only DO Not Attach Compendium DO Not Attach Compendium, Do Not Delete/merge, 04/30/2024 13:53:44 05/01/19 25 04/30/2024 urina lysis , dipst ick Urobilinogen .2 Not Available In-Of fice Order Internal Use Only DO Not Attach Compendium DO Not Attach Compendium, Do Not Delete/merge, 04/30/2024 13:53:44 05/01/19 25 04/30/2024 urina lysis , dipst ick Protein Negati ve Not Available In-Office Order Internal Use Only DO Not Attach Compendium DO Not Attach Compendium, Do Not Delete/merge, 04/30/2024 13:53:44 05/01/1904/30/2024 urina lysis , dipst ick pH 7.5 Not Available In-Office Order Internal Use Only DO Not Attach Compendium DO Not Attach Compendium, Do Not Delete/merge, 04/30/2024 13:53:44 05/01/19 25 04/30/2024 urina lysis , dipst ick Blood Hemoly zed: Trace Not Available In-Office Order Internal Use Only DO Not Attach Compendium DO Not Attach Compendium, Do Not Delete/merge, 04/30/2024 13:53:44 05/01/19 25 04/30/2024 urina lysis , dipst ick Specific [place] 1.020 Not Available In-Off ice Order Internal Use Only DO Not Attach Compendium DO Not Attach Compendium, Do Not Delete/merge, 04/30/2024 13:53:44 05/01/19 25 04/30/2024 urina lysis , dipst ick Ketone Negati ve Not Available In-Office Order Internal Use Only DO Not Attach Compendium DO Not Attach Compendium, Do Not Delete/merge, 04/30/2024 13:53:44 05/01/19 25 04/30/2024 urina lysis , dipst ick Bilirubin Negati ve Not Available In-Office Order Internal Use Only DO Not Attach Compendium DO Not Attach Compendium, Do Not Delete/merge, 04/30/2024 13:53:44 05/01/19 25 04/30/2024 urina lysis , dipst ick Glucose Negati ve Not Available In-Office Order Internal Use Only DO Not Attach Compendium DO Not Attach Compendium, Do Not Delete/merge, 04/30/2024 13:53:44 05/01/19 25 04/30/2024 urina lysis , dipst ick Appearance Clear Not Available In-Offi ce Order Internal Use Only DO Not Attach Compendium DO Not Attach Compendium, Do Not Delete/merge, 04/30/2024 13:53:44 05/01/19 25 04/30/2024 urina lysis , dipst ick Color Yellow Not Available In-Office Order Internal Use Only DO Not Attach Compendium DO Not Attach Compendium, Do Not Delete/merge, 04/30/2024 13:53:44 11/26/19 23 11/25/2022 LDCT, chest , for lung cance r scree duran No observ ation record ed[facility] [address] [place], [address], 03/15/2023 11:16:07 05/13/19 24 05/12/2023 trans -thor acic echoc ardio gram (TTE) (PROC ) No observ ation record ed. [email or web address] [facility] [address], [place], [address], 05/16/2023 09:54:01 05/13/19 24 05/12/2023 trans -thor acic echoc ardio gram (TTE) (PROC ) No observ ation record ed. [facility] [address], [place], [address], 05/23/2023 12:08:32 05/20/19 24 05/20/2023 trans -thor acic echoc ardio gram (TTE) (PROC ) No observ ation record ed. [facility] [address] , [place], [address], 05/23/2023 12:08:47 05/20/19 24 05/20/2023 PFT, compl ete No observ ation record ed. [address] [facility] [address], [place], [address], 05/23/2023 10:29:28 Result Notes None recorded. Problems Name Problem SNOMED Code Status Onset Date Resolution Date Notes Provider Name and Address Organization Details Recorded Time Hepatosplenome dion 16731635 Active 2020 RAE MEJIA Attn: Rhett valero,[address], [place], [address], [facility] 17:12:24 Multiple nodules of lung 591313306 Active 2020 RAE MEJIA Attn: Rhett g,[address], [place], [address], [facility] 17:12:25 Pulmonary emphysema 13297459 Active 2020 RAE MEJIA Attn: Accountin g,[address], [place], [address], [place] [facility] 1 17:12:27 Pulmonary hypertension 61907450 Active 2020 RAE MEJIA Attn: Accountin g,[address], [place], [address], [place] [facility] 1 17:12:28 Steatotic liver disease 204238276 Active 2020 THANIA MASSEY, RN CARE MANAGER [address], [place], [address], [place] [facility] 1 09:01:58 Body mass index 30+ - obesity 712365215 Active 2020 THANIA MASSEY, RN CARE MANAGER [address], [place], [address], [place] [facility] 1 09:03:53 Tobacco user 205904915 Active 2020 THANIA MASSEY RN CARE MANAGER [address], [place], [address], [place] [facility] 1 09:06:39 Prediabetes 868551013 Active 2020 THANIA MASSEY, RN CARE MANAGER [address], [place], [address], [place] [facility] 1 09:46:00 Obstructive sleep apnea syndrome 69979482 Active SHANT ALVAREZ RN CARE MANAGER [address], [place], [address], [place] [facility] 1 11:51:34 Coronary atherosclerosi s 713653003 Active 2021 RAE MEJIA Attn: Accountin g,[address], [place], [address], [place] [facility] 2 16:34:08 Type 2 diabetes mellitus 28764484 Active 2022 RAE MEJIA Attn: Accountin g,[address], [place], [address], [place] [facility] 3 09:29:26 Hyperlipidemia 10093311 Active 2022 RAE MEJIA Attn: Rhett valero,[address], [place], [address], [place] [facility] 3 09:29:29 Essential hypertension 08284538 Active 2022 RAE MEJIA Attn: Rhett valero,[address], [place], [address], [place] [facility] 3 09:29:30 Smoker 61069978 Active 2022 RAE MEJIA Attn: Rhett valero,[address], [place], [address] [facility] 3 09:29:32 Obesity 635846957 Active 2022 RAE MEJIA Attn: Rhett valero,[address], [place], [address], [place] [facility] 3 09:29:34 Problem Notes None recorded. Procedures Surgical History Date Name Laterality Status Provider Name and Address Organization Details Recorded Time 05/21/19 Date of Last Mammogram completed Bertha Villanueva [place] [facility] 09/09/2022 09:19:31 05/13/19 Date of Last Pap Smear completed JASPAL Byrd [facility] 05/12/2021 09:46:28 02/21/19 00 Tubal Ligation completed JASPAL Byrd - [facility] 05/12/2021 09:50:53 destruction of lesion of uterus completed JASPAL Whalen [facility] 06/12/2020 09:43:38 Cholecystectomy completed JASPAL Whalen [facility] 06/12/2020 09:43:45 delivery completed JASPAL Whalen [facility] 06/12/2020 09:43:51 Imaging Results Imaging Date Name Status LastModified by Organization Details LastModified Time 11/25/2022 LDCT, chest, for lung cancer screening completed [facility] [address], [place], [address], 03/15/2023 11:16:07 05/12/2023 trans-thoracic echocardiogram (TTE) (PROC) completed [email or web address] [address], [place], [address], 05/16/2023 09:54:01 05/12/2023 trans-thoracic echocardiogram (TTE) (PROC) completed [facility] [address], [place], [address], 05/23/2023 12:08:32 05/20/2023 trans-thoracic echocardiogram (TTE) (PROC) completed [facility] [address], [place], [address], 05/23/2023 12:08:47 05/20/2023 PFT, complete completed [email or web address] [address], [place], [address], 05/23/2023 10:29:28 Procedure Notes None recorded. Medical Equipment None Reported. Allergies Allergen ID Allergen Name Allergen Category Reaction Reaction Severity Criticality Documentation Date Start Date Code Code System Note Provider Name and Address Organization Details Recorded Time 491067 omeprazol e medicatio n dizziness severe Not available 05/12/20212021 7646 RxNorm Not Available Not Available Not Available Medications Name Sig Start Date Stop Date Status Note LastModified by Organization Details LastModified Time atorvastati n 40 mg tablet TAKE 1 TABLET BY MOUTH EVERY DAY active Not Available Not Available No t Available metformin 500 mg tablet TAKE 1 TABLET BY MOUTH TWICE DAILY active Not Available Not Available No t Available bupropion HCl SR 150 mg tablet,12 hr sustained-r elease TAKE 1 TABLET BY MOUTH TWICE DAILY 03/11 completed Not Available Not Available Not Available atorvastati n 20 mg tablet TAKE 1 TABLET BY MOUTH EVERY DAY 04/12 completed Not Available Not Available Not Available nicotine 14 mg/24 hr daily transdermal patch UNWRAP AND APPLY 1 PATCH TO THE SKIN EVERY DAY AFTER 21 MG PATCHES active Not Available Not Available No t Available azithromyci n 250 mg tablet TAKE 2 TABLETS BY MOUTH FOR 1 DAY THEN TAKE 1 TABLET BY MOUTH DAILY FOR 4 DAYS DIRECTED 08/19 completed Not Available Not Available Not Available hydrocodone 5 mg-acetamin ophen 325 mg tablet TK 1 T PO Q 4 TO 6 H PRN P 11/25 completed Not Available Not Available Not Available lisinopril 20 mg tablet TAKE 1 TABLET BY MOUTH EVERY DAY active Not Available Not Available No t Available prednisone 20 mg tablet TAKE 3 TABLETS BY ORAL ROUTE ONCE DAILY FOR 7 DAYS 09/09 completed Not Available Not Available Not Available aspirin 81 mg tablet,neo yed release TAKE 1 TABLET BY MOUTH EVERY DAY active Not Available Not Available No t Available amoxicillin 875 mg tablet TAKE 1 TABLET BY MOUTH TWICE DAILY active Not Available Not Available No t Available DOK 100 mg capsule Take 1 capsule twice a day by oral route as needed. 04/28 completed Not Available Not Available Not Available benzonatate 100 mg capsule TAKE 1 CAPSULE BY MOUTH EVERY 8 HOURS NEEDED 08/19 completed Not Available Not Available Not Available nystatin 100,000 unit/gram topical cream APPLY TOPICALLY TO THE AFFECTED AREA TWICE DAILY 11/25 completed Not Available Not Available Not Available lisinopril 10 mg tablet TAKE 1 TABLET BY MOUTH EVERY DAY IN THE MORNING 06/02 completed Not Available Not Available Not Available misoprostol 200 mcg tablet 06/12 completed Not Available Not Available Not Available nicotine 21 mg/24 hr daily transdermal patch UNWRAP AND APPLY 1 PATCH TO SKIN EVERY DAY active Not Available Not Available No t Available oxybutynin chloride ER 5 mg tablet,exte nded release 24 hr TAKE 1 TABLET BY MOUTH EVERY DAY 04/12 completed Not Available Not Available Not Available omeprazole 20 mg capsule,del ayed release one capsule po q d 2024 active Not Available Not Available Not Avai lable ibuprofen 600 mg tablet TK 1 T PO Q 8 H PRN 06/12 completed Not Available Not Available Not Available polyethylen e glycol 3350 17 gram/dose oral powder In a pitcher, mix entire bottle of Miralax in one 64 ounce bottle of yellow or green Gatorade. Beginning at 5:00 PM the evening before the colonosco py, drink 1 8-ounce glass every 15 minutes until completed . Drink 4 glasses of water after finishing this mixture 03/11 completed Not Available Not Available Not Available albuterol sulfate HFA 90 mcg/actuati on aerosol inhaler INHALE 2 PUFFS BY MOUTH FOUR TIMES DAILY NEEDED active Not Available Not Available No t Available fluticasone propionate 50 mcg/actuati on nasal spray,suspe nsion INSTILL 1 SPRAY INTO EACH NOSTRIL TWICE DAILY DAILY active Not Available Not Available No t Available clotrimazol e 1 % topical cream APPLY TO THE AFFECTED AND SURROUNDI NG AREAS OF SKIN BY TOPICAL ROUTE 2 TIMES PER DAY IN THE MORNING AND EVENING 04/20 completed Not Available Not Available Not Available doxycycline hyclate 100 mg tablet TAKE 1 TABLET BY MOUTH TWICE DAILY FOR 10 DAYS 09/09 completed Not Available Not Available Not Available naproxen 500 mg tablet TAKE 1 TABLET BY MOUTH TWICE DAILY WITH FOOD 11/25 completed Not Available Not Available Not Available Dulcolax (bisacodyl) 5 mg tablet,neo yed release At 2:00 PM the day before the colonosco py, take all 4 tablets of Dulcolax by mouth at one time with 8 ounces of water 03/11 completed Not Available Not Available Not Available Laxative (bisacodyl) 5 mg tablet TAKE 4 TABLETS BY MOUTH AT 2PM WITH 8 OZ OF WATER DAY BEFORE COLONOSCO PY 04/28 completed Not Available Not Available Not Available Advair HFA 230 mcg-21 mcg/actuati on aerosol inhaler USE 2 INHALATIO NS BY MOUTH TWICE DAILY active Not Available Not Available No t Available OneTouch Verio test strips TEST THREE TIMES DAILY active Not Available Not Available No t Available Myrbetriq 25 mg tablet,exte nded release Take 1 tablet every day by oral route. 05/20 completed Not Available Not Available Not Available Daily Fiber (psyllium-s ucrose) 3.4 gram/12 gram oral powder Take 1 tbsp every day by oral route. 04/12 completed Not Available Not Available Not Available Ozempic 0.25 mg or 0.5 mg (2 mg/1.5 mL) subcutaneou s pen injector INJECT 0.5 MG under the skin ONCE WEEKLY 05/20 completed Not Available Not Available Not Available OneTouch Delica Plus Lancet 33 gauge TEST THREE TIMES DAILY active Not Available Not Available No t Available OneTouch Verio Reflect Meter active Not Available Not Available Not Available Ozempic 1 mg/dose (4 mg/3 mL) subcutaneou s pen injector Inject by subcutane ous route for 28 days. 05/13 completed Not Available Not Available Not Available Vitals Date Recorded Body height Body mass index (BMI) Body weight Body temperature Oxygen saturation Oxygen saturation in Arterial blood by Pulse oximetry Heart rate Systolic blood pressure Diastolic blood pressure Provider Name and Address Organization Details Last Updated DateTime 3 157.48 cm 40.1 kg/m2 09818.7 3 g 97.8 [degF] 96 % 96 % 92 /min 130 mm[Hg] 84 mm[Hg] Bertha Villanueva MA [facility] 3 09:17:51 Date Recorded Body height Body mass index (BMI) Body weight Systolic blood pressure Diastolic blood pressure Provider Name and Address Organization Details Last Updated DateTime 12/17/2022 157.48 cm 40.6 kg/m2 066785.8 7 g 124 mm[Hg] 78 mm[Hg] Antoinette Chavez MA [facility] 3 10:19:10 Date Recorded Body height Body mass index (BMI) Body weight Oxygen saturation Oxygen saturation in Arterial blood by Pulse oximetry Heart rate Systolic blood pressure Diastolic blood pressure Provider Name and Address Organization Details Last Updated DateTime 4 157.48 cm 42.8 kg/m2 603794. 61 g 96 % 96 % 84 /min 122 mm[Hg] 78 mm[Hg] Donna Fernandez MA [facility] 4 09:32:51 Date Recorded Body height Body mass index (BMI) Body weight Body temperature Oxygen saturation Oxygen saturation in Arterial blood by Pulse oximetry Heart rate Systolic blood pressure Diastolic blood pressure Provider Name and Address Organization Details Last Updated DateTime 5 157.48 cm 45.9 kg/m2 172701. 68 g 98 [degF] 94 % 94 % 75 /min 120 mm[Hg] 78 mm[Hg] Donna Fernandez MA [place] [facility] 5 10:38:30 Date Recorded Body height Body mass index (BMI) Body weight Body temperature Heart rate Oxygen saturation Oxygen saturation in Arterial blood by Pulse oximetry Systolic blood pressure Diastolic blood pressure Provider Name and Address Organization Details Last Updated DateTime 5 157.48 cm 45.9 kg/m2 558032. 28 g 98 [degF] 98 /min 96 % 96 % 124 mm[Hg] 68 mm[Hg] Leni Pennington LPN [place] - [facility] 5 13:41:19 Social History Question Answer Notes LastModified by Organizat ion Details LastModified Time Tobacco Smoking Status Current Every Day Smoker Neyda Larios MA [facility], [place] - [facility] 06/12/2020 09:42:35 Do You Have An Advance Directive? No Information n ot available 06/12/2020 What Is Your Level Of Alcohol Consumption? None Information not available 06/12/2020 In The 14 Days Before Symptom Onset, Have You Had Close Contact With A Laboratory-confirm ed COVID-19 While That Case Was Ill? No Information n ot available 02/24/2022 In The 14 Days Before Symptom Onset, Have You Had Close Contact With A Person Who Is Under Investigation For COVID-19 While That Person Was Ill? No Information not available 02/24/2022 Have You Been To An Area Known To Be High Risk For COVID-19? No Information not available 02/24/2022 Are You Currently Employed? No Information not available 07/16/2021 Do You Have A Medical Power Of Barge Master? No [email or web address] Information not available 06/18/2021 What Was The Date Of Your Most Recent Tobacco Screening? 04/12/2024 Information not available 04/12/2024 What Is Your Relationship Status? Information not available 06/12/2020 Are You Sexually Active? No Information not available 06/12/2020 Do You Have Smoke And Carbon Monoxide Detectors In Your Home? Yes Information not available 06/12/2020 At What Age Did You Start Smoking Tobacco? 34 Information not available 05/13/2022 Are You Passively Exposed To Smoke? Yes Information no t available 06/12/2020 How Much Tobacco Do You Smoke? 1 PPD Information not available 11/25/2020 Do You Use Any Illicit Or Recreational Drugs? No Information not available 06/12/2020 Has Tobacco Cessation Counseling Been Provided? Yes Information not available 06/12/2020 On What Date Was Tobacco Cessation Counseling Provided? 04/12/2024 Information not available 04/12/2024 How Many Years Have You Smoked Tobacco? 27 Information not available 05/13/2022 Do You Or Have You Ever Used Any Other Forms Of Tobacco Or Nicotine? No Information not available 06/12/2020 Sex: Unknown Functional Status None recorded. Mental Status None recorded. Family History Relationship Description Onset Age of this Age Resolved Age Notes LastModified by Organization Details LastModified Time Sister Malignant tumor of breast [email or web address] Not available 2020 09:40:34 Sister Malignant neoplasm of brain [email or web address] Not available 2020 09:40:49 Maternal Aunt Diabetes mellitus [email or web address] Not available 2020 09:40:59 Brother Harmful pattern of use of alcohol [email or web address] Not available 2020 09:41:27 Medical History Condition Response Anxiety Disorder N Diabetes N Coronary Artery Disease N High Blood Pressure N Atrial Fibrillation N Seizures/Epilepsy N Acid Reflux (GERD) Y Cancer Y Thyroid Problems N Stroke N Blood Clots N Asthma Y Depression N COPD N Anemia N High Cholesterol N Hepatitis N Heart Attack ([place]) N Osteoporosis N Heart Failure N Gynecological History Statement/Question Response Menses Monthly N Date of Last Pap Smear 05/12/2021 Current Control Method Tubal Ligat ion Date of Last Mammogram 05/20/2021 Date of LMP Obstetrics History GPAL:G 2 P 1 1 0 2 Type Value Multiple Births 0 Full Term 1 Induced 0 Spontaneous 0 Premature 1 Living 2 Ectopics 0 Total 2 Immunizations Vaccine Type Date Status Note Provider Nam e and Address Organization Details Recorded Time pneumococcal polysaccharide PPV23 2 completed Lillie Duff MD Attn: Accounting,[address], [place], [address], [place] [facility] 01/25/2022 17:39:08 Past Encounters Encounter ID Performer Location Encounter Start Date Encounter Closed Date Diagnosis/Indication Diagnosis SNOMED-CT Code Diagnosis ICD10 Code Diagnosis Note [id number] RAE SANTACRUZ ([employer]OTIONS ASSISTANT) [facility] [place] [address] 06/12/2020 09:17:54 06/19/2020 10:22:29 Adult health examination 847562675 Z00.00 49yo F presents to establish care today. Screening for malignant neoplasm of breast 950400446 Z12.31 Last mammogram was completed about 1 year ago and was normal at that time. No personal or family history of breast cancer. Ordered screening mammogram today. Screening for malignant neoplasm of colon 761491574 Z12.11 No prior colonoscop y or cologuard. No known family history of colorectal cancer. Provided GI referral for colonoscop y. Solitary n odule of lung 560361104 R91.1 Patient has a 52 pack year history and has not had a LDCT scan in the past. Right shoulder CT on 06/04/2020 showed incidental 4.8 mm non-calcif ied pulmonary nodule in the superior segment of the right lower lobe. Ordered CT scan of the chest for better characteri zation of pulmonary nodule. Referral to pulm as below. Abdominal pain 61572702 R10.9 Few month history of diffuse upper abdominal pain and bloating that worsens with eating any type of food. Reports intermitte nt nausea and vomiting with last episode 1 week ago. No fever, hematemesi s, change in BM, or melena. Prior history of cholecyste ctomy. On PE, she has tenderness of upper abdomen and is distended. Follow up labs and US. Rx omeprazole for suspected gastritis. Discussed diet modificati ons. Obesity 962278790 E66.9 BMI 39.1. She reports maintainin g a diet high in carbs and sugary drinks (> 12 sodas/day) with recent polyuria, polydipsia , and polyphagia . Ordered lipid panel and HbA1c. Advised her on a diet high in fruits and vegetables , to limit fat, sugar, and processed foods, and to exercise at least 30 minutes 5x/week. Smoker 65419835 F17.200 52 pack year history. Counseled patient on smoking cessation. Advised setting a quit date and removing all cigarettes , lighters, and matches from the home at that time. Consider starting patches/gu m. Try to identify triggers ahead of time, so you can be better prepared to cope with them. Urgent tanna gisel to urinate [id number] R39.15 Complains of urinary urgency. Urine dipstick with trace blood, but is otherwise normal. Concern for diabetes considerin g symptoms of polyuria, polydipsia , and polyphagia . HbA1c ordered. Tendinitis of right shoulder [id number] 261797 M75.91 Diagnosed with calcific rotator cuff tendinitis of the right shoulder. She is following with ortho who recommende d avoiding use of sling and to start PT. She has an appointmen t scheduled with PT on 06/16/2020. Candidal intertrigo 2661 62216 B37.2 Complains of recurrent rash under pannus. On examinatio n, there is a rash consistent with candidal intertrigo . Prescribed nystatin topical cream to treat. Wear loose cotton clothing. Do not wear nylon or other fabric that holds body heat and moisture close to the skin. Dyspnea 736591882 R06.00 Patient reports gradually worsening fatigue, dyspnea on exertion, and non-produc tive cough x 8 months. She reports becoming short of breath while walking across a room or cleaning, which is new for her. No associated chest pain or leg swelling. Follow up PFTs for suspected COPD. Referral to pulm. [id number] THANIA MASSEY NP [facility] [address] [place] [phone] 08/22/2020 09:29:00 08/22/2020 16:41:24 Screening for malignant neoplasm of colon 605816614 Z12.11 No FH or PMH of colorectal cancer or colon polypsSist er with breast cancerSist er with brain cancer Steatotic liver disease 874335071 K76.0 Fatty liver disease, likely multifacto rial with NAFLD with a component of JOHANNA. Patient counseled at length regarding dietary changes and exercise targeting a sustained 5% - 10% weight loss. Treatment should be focused on optimizing control of the metabolic syndrome, which should reduce risk of cardiovasc ular disease and severity of liver disease. The use of a statin in NAFLD is safe, with no increased risk of drug-induc ed hepatotoxi city. Continue to work with PCP for blood sugar monitoring and management Discussed with patient the concern that ongoing elevated liver enzymes can lead to liver fibrosis which can progress to cirrhosis. Cirrhosis is progressiv e liver damage with complicati ons of liver cancer, liver failure and . Pulmonary emphysema 8743 3001 J43.9 On albuterol MDIManaged in primary care - to see Shant Alvarez APRN today Pulmonary hypertension 60432090 I27.20 To see Shant Alvarez APRN today Multiple n odules of lung 282268383 R91.8 To see Shant Alvarez APRN today Body mass index 30+ - obesity 633850105 Z68.39 Encouraged weight loss -Choosing low-fat, low-calori e foods -Eating smaller portions -Drinking water instead of sugary drinks -Being physically active Tobacco user 084895497 Z 72.0 Strongly encouraged to discontinu e smokingPCP ordered CT chest. Prediabetes 471411860 R7 3.03 A1C 5.8% on 06/13/2020 Epigastric pain 36456881 R10.13 [id number] SHANT ALVAREZ NP [facility] [address] [phone] 08/22/2020 10:18:33 08/27/2020 08:33:44 Dyspnea on exertion 97344029 R06.09 Continue albuterol as neededPFT, 6 min walk Multiple n odules of lung 083636664 R91.[address] w/o contrast at [facility] 08/20/20: Stable non calcified pulmonary nodules in RLL and midlung.Re peat Chest ct w/o contrast in 6 months (01/2021) Pulmonary hypertension 94186188 I27.20 Echo Steatotic liver disease 789165554 K76.0 Followed by GI Tobacco user 108211322 Z 72.0 tobacco- 2ppd for 25 years, 50 pack year hxSmoking cessation discussed Body mass index 40+ - severely obese 230799446 Z68.41 Encouraged weight loss -Choosing low-fat, low-calori e foods -Eating smaller portions -Drinking water instead of sugary drinks -Being physically active Sleep apnea 98480104 G47 .30 Would benefit from home sleep study, has snoring, insomnia, daytime sleepiness and unrefreshe d sleep. Environmental allergy 42 0548143 T78.49XA Allergen Insomnia 017106144 G47.0 0 Likely related to possible CATE, significan t caffine intake daily and poor sleep hygiene.Ho mt sleep study orderedSle ep hygiene discussed [id number] RAE SANTACRUZ (Adult Med) [address] [place] [address] 11/25/2020 10:05:30 12/02/2020 07:08:55 Obesity 444447669 E66.9 BMI 41.5. Last a1c 5.8. She reports maintainin g a diet high in carbs and sugary drinks (1-3 cases soda/day). Advised her on a diet high in fruits and vegetables , to limit fat, sugar, and processed foods, and to exercise at least 30 minutes 5x/week. Smoker 78497897 F17.200 52 pack year history. Counseled patient on smoking cessation. Advised setting a quit date and removing all cigarettes , lighters, and matches from the home at that time. Consider starting patches/gu m. Try to identify triggers ahead of time, so you can be better prepared to cope with them. Wellbutrin as below. Subclinica l hypothyroidism 84804207 E02 TSH 5.650, T4 1.08 on 06/13/20. Repeat labs. Multiple n odules of lung 884608064 R91.8 CT 08/20/20: Stable non calcified pulmonary nodules in RLL and midlung. Repeat CT in 6 months-1 year. Pulmonary hypertension 04984552 I27.20 Echo 10/14/20 with EF 75%. Followed by pulm. Epigastric pain 12919323 R10.13 Likely due to high soda intake daily. Continue PPI. Follow up with GI for planned endoscopy. Obstructiv e sleep apnea syndrome 94382906 G47.33 HSAT 10/14/20: RDI 26.8/hr, lowest O2 76%. Needs to complete CPAP titration. Steatotic liver disease 183372105 K76.0 Followed by GI. Major depr essive disorder 310349615 F32.9 PHQ9 = 17. Pt endorses low mood, decreased motivation . Denies SI/HI. Open to starting medication s to help. Will rx Wellbutrin to aid in mood and smoking cessation. Referral placed to counseling , strongly encouraged . Dyspnea on exertion 6084 5006 R06.09 PFTs 10/14/20 with no airway obstructio n, minimal restrictio n. Albuterol prn. Smoking cessation. Followed by pulm. Constipation 90877315 K5 9.00 Likely diet induced. Start fiber and stool softners. Increase water and fiber in diet. Follow up with GI for colonoscop y. [id number] [facility] [address] [place] [address] 11/26/2020 11:08:53 12/08/2020 15:24:41 Dyspnea on exertion 47134818 R06.09 Continue albuterol as neededpft 10/13/20:FV C:60%, FEV1: 65 %... 5 % change post broncho,FE V1/FVC ratio: 88 %,T %,RV: 81 %,DLCO: 59 %no obstructio n, minimal restrictio n Tobacco user 440353461 Z 72.0 tobacco- 2ppd for 25 years, 50 pack year hxSmoking cessation discussed Sleep apnea 00284428 G47 .30 HSAT 10/14/20: RDI 26.8/hr, lowest O2 76%Orderin g cpap titration Insomnia 320724004 G47.0 0 Likely related to CATE, significan t caffeine intake daily and poor sleep hygiene. Body mass index 40+ - severely obese 907240311 Z68.41 Multiple n odules of lung 943508474 R91.[address] w/o contrast at [facility] 08/20/20: Stable non calcified pulmonary nodules in RLL and midlung.Re peat Chest ct w/o contrast in 6 months (01/2021) Environmental allergy 42 5156931 T78.49XA Steatotic liver disease 126457910 K76.0 Followed by GI [id number] SHANT ALVAREZ NP [facility] [address] [place] [address] 03/11/2021 14:24:48 03/12/2021 07:43:16 Sleep apnea 81248915 G47.30 HSAT 10/14/20: RDI 26.8/hr, lowest O2 76%cpap titration 01/06/21: 8cm , ahi 0.7/lowest SpO2 88% Insomnia 756697085 G47.0 0 Likely related to CATE, significan t caffeine intake daily and poor sleep hygiene. Dyspnea on exertion 6084 5006 R06.09 Continue albuterol as neededpft 10/13/20: no obstructio n, minimal restrictio n Tobacco user 910773230 Z 72.0 tobacco- 2ppd for 25 years, 50 pack year hxSmoking cessation discussed Body mass index 40+ - severely obese 503005589 Z68.41 Multiple n odules of lung 249384077 R91.[address] w/o contrast at [facility] 08/20/20: Stable non calcified pulmonary nodules in RLL and midlung.Re peat Chest ct w/o contrast in 6 months (01/2021) Environmental allergy 42 8324401 T78.49XA Steatotic liver disease 432236980 K76.0 Followed by GI [id number] Lillie Duff MD [facility] (Adult Med) [address] [place] [address] 04/28/2021 08:59:43 04/30/2021 18:02:34 Obesity 029730233 E66.9 BMI 41.7. She reports recently quitting soda, was drinking 1-3 cases soda/day. Advised her on a diet high in fruits and vegetables , to limit fat, sugar, and processed foods, and to exercise at least 30 minutes 5x/week. Started using stationary bike ~10 min daily. She is interested in weight loss medication s, will consider starting ozempic at next visit pending labs. Last a1c 5.8. Will repeat today. Obstructiv e sleep apnea syndrome 50066648 G47.33 HSAT 10/14/20: RDI 26.8/hr, lowest O2 76%. Completed CPAP titration Dec 2020, still needs to curing pickling packer CPAP equipment. Smoker 16861936 F17.200 52 pack year history. Counseled patient on smoking cessation. Dyspnea on exertion 6084 5006 R06.09 PFTs 10/14/20 with no airway obstructio n, minimal restrictio n. Improving with regular exercise. Albuterol prn. Smoking cessation. Followed by pulm. Multiple n odules of lung 229764963 R91.8 CT 08/20/20: Stable non calcified pulmonary nodules in RLL and midlung. Repeat CT completed 1 week ago, will obtain records. Dora mcmanus hypothyroidism 53955268 E02 TSH 5.650, T4 1.08 on 06/13/20. Repeat labs. Steatotic liver disease 892111457 K76.0 Followed by GI. Thought to be NAFLD. Essential hypertension 55349392 I10 BPs have been persistent ly elevated at several of her last appointmen ts with specialist s and today (140-150s/ 90s). Will initiate therapy with ACEi. Discussed DASH diet, smoking cessation, regular exercise, and weight loss. She is to RTC in 2 weeks for BP check. Gastroesop hageal reflux disease 387126241 K21.9 Pt just had EGD and was started on higher dose PPI (unsure name of medication ). She reports side effects (dizziness ) from medication and stopped taking it. She had no problems when previously taking omeprazole 20mg QD, advised to restart and follow up with GI. Will obtain EGD/colono scopy records. [id number] RAE SANTACRUZ ([facility]) [address] [place] [phone] 05/12/2021 09:32:22 05/13/2021 13:38:03 Screening for malignant neoplasm of breast 163331619 Z12.31 Last MAMMO performed 07/17/2020, WNL. No breast complaints such as masses, tenderness , or discharge. Annual screening order provided. Gynecologi c examination 12227730 Z01.419 Cervical cancer screening: Last Pap unknown, Performed todayBreas t cancer screening: Reviewed recommenda tions for initiation at age 40 with annual screening. Discussed SBEVaginit is: routine nuswab, treat as neededCont raception: s/p tubal ligationDi et/exercis e: Counseled regarding importance of physical activity, healthy diet and appropriat e calcium intake. Coronary arteriosclerosis 28068760 I25.[address] notable for CAD. Started on statin and ASA. Referral to cardiology for further evaluation . Candidal intertrigo 2661 75463 B37.2 On examinatio n, there is a rash consistent with candidal intertrigo . Prescribed clotrimazo le 1% topical cream to treat due to history of burning with nystatin use. Wear loose cotton clothing. Do not wear nylon or other fabric that holds body heat and moisture close to the skin. Keep areas clean and dry. Overactive urinary bladder 868647731 N32.81 Frequent urination with incontinen ce. Myrbetriq started. Discussed limiting liquids, bladder training, Kegel exercises. Obesity 279008639 E66.9 BMI 41.2. She reports recently quitting soda, was drinking 1-3 cases soda/day. Advised her on a diet high in fruits and vegetables , to limit fat, sugar, and processed foods, and to exercise at least 30 minutes 5x/week. Started using stationary bike ~10 min daily. She is interested in weight loss medication s, will start ozempic. Last a1c 6.0. RTC monthly to reassess. [id number] SHANT ALVAREZ NP [facility] [address] [place] [phone] 06/18/2021 11:04:45 06/19/2021 09:35:47 Sleep apnea 36525135 G47.30 HSAT 10/14/20: RDI 26.8/hr, lowest O2 76%cpap titration 01/06/21: 8cm , ahi 0.7/lowest SpO2 88%Does not have cpap, she missed call from DME for set up. Encouraged her to contact DME as soon as she is ableSleep hygiene discussedf /u 3 months to review sleep and cpap compliance /efficacy Insomnia 775839185 G47.0 0 Likely related to CATE, significan t caffeine intake daily and poor sleep hygiene. Dyspnea on exertion 6084 5006 R06.09 Continue albuterol as neededImpr sherri, rare usagepft 10/13/20: no obstructio n, minimal restrictio n Tobacco user 385946842 Z 72.0 tobacco- 2ppd for 25 years, 50 pack year hxWill order LDCT, lung cancer screening. Discussed risk/benef its, importance of annual screening adherence, and smoking cessation. Body mass index 40+ - severely obese 608505906 Z68.41 Multiple n odules of lung 589473132 R91.8 Stable nodules , continue to follow through [facility] LDCT lung cancer screening Chest ct w/o contrast 04/17/21 at [facility]:S table RLL non calcified pulmonary nodules, stable since June 2020Mild centrilobu lar emphysemaC ADpulmonar y hypertensi onHepatic steatosis Chest ct w/o contrast at [facility] 08/20/20: Stable non calcified pulmonary nodules in RLL and midlung. [id number] RAE SANTACRUZ (Adult Med) [address] [place] [phone] 06/16/2021 10:32:56 06/18/2021 11:43:32 Obesity 722275749 E66.9 BMI 40.1. She has ~6# weight loss over the past month. Has not started Ozempic. She reports recently quitting soda, was drinking 1-3 cases soda/day. Advised her on a diet high in fruits and vegetables , to limit fat, sugar, and processed foods, and to exercise at least 30 minutes 5x/week. Advised Ozempic was sent to [facility] and to start 0.25mg weekly. Last a1c 6.0. RTC monthly to reassess. [id number] RAE SANTACRUZ (Adult Med) [address] [place] [phone] 07/16/2021 10:25:12 07/16/2021 11:00:36 Obesity 589991183 E66.9 BMI 39.1. She has ~6# weight loss over the past month. Has started Ozempic. She reports recently quitting soda, was drinking 1-3 cases soda/day. Advised her on a diet high in fruits and vegetables , to limit fat, sugar, and processed foods, and to exercise at least 30 minutes 5x/week. Branden increase Ozempic to 0.5mg weekly. Last a1c 6.0. RTC monthly to reassess. [id number] SHANT ALVAREZ NP [facility] [address] [place] [address] 08/19/2021 10:10:29 08/19/2021 13:54:47 Sleep apnea 03107731 G47.30 HSAT 10/14/20: RDI 26.8/hr, lowest O2 76%cpap titration 01/06/21: 8cm , ahi 0.7/lowest SpO2 88%Cpap set up 07/07/21DME - IV & resp careMachin e- lunaMask type- nasal No data available, jesus has no modem. Will request compliance reportRepo rts benefiting from useMotivat ed to useEncoura gebella adjusting straps till snug , complaint of nasal mask -prongs falling out when changing positions. Order for new mask/troub leshooting . Tobacco user 355717882 Z 72.0 tobacco- 2ppd for 25 years, 50 pack year hxSmoking cessation discussed, states she is not ready to stop smoking Body mass index 40+ - severely obese 492545396 Z68.41 Multiple n odules of lung 955694883 R91.8 Stable nodules , continue to follow through annual LDCT lung cancer screening [address] w/o contrast 04/17/21 at [facility]:S table RLL non calcified pulmonary nodules, stable since June 2020Mild centrilobu lar emphysemaC ADpulmonar y hypertensi onHepatic steatosis Chest ct w/o contrast at [facility] 08/20/20: Stable non calcified pulmonary nodules in RLL and midlung. [id number] Lillie Duff MD [facility] (Adult Med) [address] [place] [phone] 08/26/2021 10:56:19 08/27/2021 12:04:35 Obesity 536814856 E66.9 BMI 39.1. She has lost 14 lbs since April 2021 after starting Ozempic. Weight has been stable over the past month, though patient didn't take Ozempic during this time due to not knowing there was a refill at the pharmacy. Refill given today. Advised her on a diet high in fruits and vegetables , to limit fat, sugar, and processed foods, and to exercise at least 30 minutes 5x/week. Will increase Ozempic to 0.5mg weekly as tolerated. Last a1c 6.0. RTC monthly to reassess. Injury of left knee 4592 568771 62003 S89.92XA Likely medial meniscus injury with a twisting MOA, TTP to medial joint line and pain with McMurrays test. Pain is improving. Recommende d patient continue icing and to use ibuprofen as needed for pain. If pain doesn't continue to improve, will refer for PT and imaging. [id number] MD Laz Denney (Adult Med) [address] [place] [phone] 10/07/2021 11:47:41 10/08/2021 11:07:02 Obesity 721645811 E66.9 BMI 39. She has lost 15 lbs since April 2021. Started Ozempic last week due to insurance issues, denies AE. Recommende d daily exercise with a goal of 150 min/week of moderate-s trenuous activity and a balanced diet with an emphasis on fruits, vegetables , whole grains, legumes, lean protein, and mono/polyu nsaturated fats. Will continue Ozempic to 0.25mg weekly. RTC monthly to reassess. [id number] RAE SANTACRUZ [facility] (Adult Med) [address] [place] [phone] 11/25/2021 11:20:15 11/26/2021 09:00:31 Prediabetes 858147333 R73.03 Last A1c was 6.0 in April. Pt has lost 21 pounds since April. Will recheck A1c at next visit. Essential hypertension 43030627 I10 Pt requesting refill for lisinopril . Discussed DASH diet, smoking cessation, regular exercise, and weight loss. Hyperlipidemia 97212183 E78.5 Pt requesting refill for atorvastat in, will recheck lipid panel at next visit Obesity 746740540 E66.9 BMI 37.9. Lost 21 lbs since April 2021. Tolerating Ozempic well. Will increase Ozempic to 0.5mg weekly. RTC monthly to reassess. Recommende d daily exercise with a goal of 150 min/week of moderate-s trenuous activity and a balanced diet with an emphasis on fruits, vegetables , whole grains, legumes, lean protein, and mono/polyu nsaturated fats. Smoker 48543229 F17.200 52 pack year history. Counseled patient on smoking cessation. LDCT UTD, negative. [id number] MD Laz Denney (Adult Med) [address] [place] [phone] 01/05/2022 09:47:55 01/08/2022 10:27:44 Type 2 diabetes mellitus 96981455 E11.9 Last A1c was 6.0 in April, now 6.5% today despite starting Ozempic and weight loss. Counseled pt thoroughly on diagnosis of diabetes, including monitoring , treatment and complicati ons. Will schedule visit for diabetes education. Obesity 781021523 E66.9 BMI 38.4. Lost ~20 lbs since April 2021, 3# increase since last visit. Tolerating Ozempic well. Will increase Ozempic to 1 mg weekly. RTC monthly to reassess. Recommende d daily exercise with a goal of 150 min/week of moderate-s trenuous activity and a balanced diet with an emphasis on fruits, vegetables , whole grains, legumes, lean protein, and mono/polyu nsaturated fats. Essential hypertension 28521211 I10 Continue lisinopril . Discussed DASH diet, smoking cessation, regular exercise, and weight loss. Smoker 51716200 F17.200 52 pack year history. Counseled patient on smoking cessation. LDCT UTD, negative. Hyperlipidemia 98972911 E78.5 Continue atorvastat in and lifestyle changes. [id number] DEMETRA Glass ([employer] [facility]) [address] [place] [phone] 01/18/2022 11:08:31 01/21/2022 13:58:24 Prediabetes 213205017 R73.03 [id number] SHANT ALVAREZ NP [facility] [address] [place] [phone] 02/24/2022 11:35:24 02/24/2022 13:55:26 Sleep apnea 93680421 G47.30 HSAT 10/14/20: RDI 26.8/hr, lowest O2 76%cpap titration 01/06/21: 8cm , ahi 0.7/lowest SpO2 88%Cpap set up 07/07/21DME - IV & resp careMachin e- lunaMask type- nasal No data available. Will request compliance reportRepo rts benefiting from use Multiple n odules of lung 528135166 R91.8 Stable nodules , continue to follow through annual LDCT lung cancer screening [address] w/o contrast 04/17/21 at [facility]:S table RLL non calcified pulmonary nodules, stable since June 2020Mild centrilobu lar emphysemaC ADpulmonar y hypertensi onHepatic steatosis Chest ct w/o contrast at [facility] 08/20/20: Stable non calcified pulmonary nodules in RLL and midlung. will follow nodules on annual LDCT Nicotine dependence 5629 4008 F17.200 tobacco- 2ppd for 25 years, 50 pack year hxSmoking cessation discussed, states she is not ready to stop smoking Dyspnea on exertion 6084 5006 R06.09 Continue albuterol as neededImpr sherri, rare usagePFT, 6 min walk Obesity 748909673 E66.9 [id number] RAE SANTACRUZ [facility] (Adult Med) [address] [place] [phone] 03/02/2022 11:00:39 03/23/2022 13:42:46 Obesity 567421381 E66.9 BMI 39.9. Lost ~15 lbs over the past year, 3# increase since last visit. Tolerating Ozempic well, will continue. RTC monthly to reassess. Recommende d daily exercise with a goal of 150 min/week of moderate-s trenuous activity and a balanced diet with an emphasis on fruits, vegetables , whole grains, legumes, lean protein, and mono/polyu nsaturated fats. Type 2 aura betes mellitus 71268040 E11.9 Last A1c 6.5%. Pt is not able to check own BG and was referred to endocrine so that she can try to get Dexcom, has appt scheduled. Continue metformin and Ozempic. Counseled pt thoroughly on diabetes, including monitoring , treatment, and complicati ons. RTC in 1 month Hyperlipidemia 43105470 E78.5 Continue atorvastat in and lifestyle changes. Essential hypertension 49360322 I10 Continue lisinopril . Discussed DASH diet, smoking cessation, regular exercise, and weight loss. Smoker 85656940 F17.200 52 pack year history. Counseled patient on smoking cessation. LDCT UTD, negative. [id number] RAE SANTACRUZ (Adult Med) [address] [place] [phone] 04/15/2022 09:47:41 04/21/2022 10:25:23 Viral syndrome 522021115 B34.9 Mild symptoms after exposure to sick contact, no longer experienci ng any symptoms. COVID negative. Advised to RTC if symptoms return. Type 2 aura betes mellitus 22189086 E11.9 Has appt with endocrinol ogist next month. Ozempic renewed today. [id number] MD Laz Denney (Adult Med) [address] [place] [phone] 05/13/2022 10:24:36 05/20/2022 12:40:34 Type 2 diabetes mellitus 10906452 E11.9 Last A1c 6%. Patient follows up with endocrinol ogy for diabetes management . Pt complains of hair loss d/t Ozempic and discontinu ed it. Continue metformin. Counseled pt on diabetes, including monitoring , treatment, and complicati ons. RTC in 3 months Hyperlipidemia 45324662 E78.5 Continue atorvastat in and lifestyle changes. Essential hypertension 29339915 I10 Continue lisinopril . Discussed DASH diet, smoking cessation, regular exercise, and weight loss. Smoker 38903997 F17.200 52 pack year history. Counseled patient on smoking cessation. LDCT UTD, negative. Obesity 952861685 E66.9 BMI 40.6. Lost ~15 lbs over the past year, now back to initial weight due to cessation of Ozempic. Recommende d daily exercise with a goal of 150 min/week of moderate-s trenuous activity and a balanced diet with an emphasis on fruits, vegetables , whole grains, legumes, lean protein, and mono/polyu nsaturated fats. Loss of hair 633706677 L 65.9 Patient reports hair loss and thinks it may be due to Ozempic. She states she has stopped taking Ozempic for approx 3 mo. She denies fatigue or hot/cold intoleranc e. Discontinu e Ozempic. Check TSH, T4, Fe panel, and RPR. Will notify of results. [id number] MD Laz Denney (Adult Med) [address] [place] [phone] 09/09/2022 09:02:40 09/17/2022 17:12:48 Type 2 diabetes mellitus 19189090 E11.9 Last A1c 6%. Patient follows up with endocrinol ogmelissa for diabetes management . Continue metformin. Eye and feet exams UTD. Counseled pt on diabetes, including monitoring , treatment, and complicati ons. Hyperlipidemia 30459387 E78.5 Continue atorvastat in and lifestyle changes. Essential hypertension [id number] I10 Continue lisinopril . Discussed DASH diet, smoking cessation, regular exercise, and weight loss. Smoker [id number] F17.200 50+ pack year history. Counseled patient on smoking cessation. Due to yearly LDCT, ordered. Obesity [id number] E66.9 BMI 40.1. Lost ~15 lbs over the past year, now back to initial weight due to cessation of Ozempic. Recommende d daily exercise with a goal of 150 min/week of moderate-s trenuous activity and a balanced diet with an emphasis on fruits, vegetables , whole grains, legumes, lean protein, and mono/polyu nsaturated fats. Obstructiv e sleep apnea syndrome 51301970 G47.33 Continue CPAP. Coronary atherosclerosis [id number] I25.84 Continue ASA and statin. [id number] MD Laz Denney (Adult Med) [address] [place] [address] [phone] 12/17/2022 10:05:00 12/22/2022 10:33:42 Type 2 diabetes mellitus 15108999 E11.9 Last A1c 6%. Patient follows up with endocrinol patria for diabetes management . Continue metformin. Eye and feet exams UTD. Counseled pt on diabetes, including monitoring , treatment, and complicati ons. Hyperlipidemia 85853545 E78.5 Continue atorvastat in and lifestyle changes. Essential hypertension 10885545 I10 Continue lisinopril . Discussed DASH diet, smoking cessation, regular exercise, and weight loss. Smoker 78179668 F17.200 50+ pack year history. Counseled patient on smoking cessation. -LDCT on 11/25/2022 : stable right lower lobe pulmonary nodule w/ no new suspicious pulmonary nodules - continue annual screening w/ low dose CT in one year. Obesity 192507762 E66.9 BMI 40.6. Recommende d daily exercise with a goal of 150 min/week of moderate-s trenuous activity and a balanced diet with an emphasis on fruits, vegetables , whole grains, legumes, lean protein, and mono/polyu nsaturated fats. Obstructiv e sleep apnea syndrome 67075047 G47.33 Continue CPAP. Coronary atherosclerosis 859331589 I25.84 Continue ASA and statin. Screening for malignant neoplasm of breast 386434628 Z12.31 Last MAMMO performed 05/20/2021, WNL. Annual screening order provided. [id number] MD Laz Jaimes (Adult Med) [address] [place] [phone] 04/20/2023 09:20:13 04/21/2023 16:25:19 Dyspnea on exertion 02178432 R06.09 Saw pulmonolog ist. Recommende d Albuterol prn. No obstructio n, minimal restrictio n. Patient is a smoker. Coronary atherosclerosis 871812710 I25.10 Patient has been experienci ng exertional chest pain for two months. Will call Cardiologi st to get her an appointmen t for evaluation . Advised her to seek immediate medical attention if worse. Abdominal pain 93796294 R10.9 Continue Omeprazole . Type 2 aura betes mellitus 68097751 E11.9 Check routine lab work. Main concern at this time is chest pain. Will discuss further at follow up. Follow up in three months. Increased frequency of urination 961422037 R35.0 Will get UA to check for infection. Solitary n odule of lung 917586268 R91.1 LDCT done November 2022. Nodule stable. Repeat in one year. [id number] MD Laz Jaimes (Adult Med) [address] [place] [address] [phone] 04/12/2024 10:01:50 04/13/2024 11:02:25 Body mass index 40+ - severely obese 240653924 Z68.41 Trying to eat healthier. Still not loosing weight. Would like to discuss GLP-1. Will discuss at follow up in three months. Will return for fasting blood work. Asked her to really work at decreasing soda intake. Dyspnea on exertion 6084 5006 R06.09 Obstructiv e pulmonary disease on PFT. Complains of fatigue and SOB with daily activities . Will add preventati ve inhaler. Coronary atherosclerosis 515769927 I25.10 Continue aspirin a day. Type 2 aura betes mellitus 48163640 E11.9 Hemoglobin A1C today is good. Continue present medication . Would like to discuss GLP-1 at follow up because this could also help with weight loss. Will find out when she last saw ophthalmol delano at follow up. Drank a soda today so will follow up for fasting labs. Abdominal pain 73119424 R10.9 Continue Omeprazole . Essential hypertension 13243103 I10 Blood pressure good today. Headache 01884585 R51.9 Sinus pressure. Will try steroid nose spray. Will let me know if doesn't improve. Increased frequency of urination 996704838 R35.0 Has had urinary frequency for some time. Suspect urge incontinen ce. Will check UA. Hyperlipidemia 22443567 E78.5 Will return for fasting lipid profile. Continue Atorvastat in. Fatigue 54186228 R53.83 This is likely secondary to dyspnea. Hopefully this will improve with use of preventati ve inhaler. Will also check blood work for systemic causes. Nicotine user 390559484 Z72.0 [id number] Kalani Morocho MD [facility] (Adult Med) [address] [place] [address] [phone] 04/30/2024 13:16:04 05/01/2024 11:06:31 Urinary symptoms 110652669 R39.9 Urinalysis did was negative for leukocytes esterase and nitrite, but it showed trace intact blood. I will check a urine culture but I am not highly suspicious for UTI. Low back pain 824804226 M54.50 Pain is below the CVA and she said it sometimes rotates from side to side. I don't believe this is due to pyelonephr itis but I will check a urine culture and make sure it is negative. I recommende d heat and avoiding aggravatin g activities . I will see how she is doing once the urine culture is back. Body mass index 40+ - severely obese 036357752 Z68.41 Patient has cut out all soda and is drinking more water. She is trying to eat more chicken and vegetables but she gets full easily so she can not eat very much. I told her to eat small portions and eat slowly. Health Concerns Section Related Observation LastModified by Organization Detai ls LastModified Time None Recorded Concern Status LastModified by Organization Details LastModified Time None Recorded Advance Directives Directive N: Payers Encounter Date Sequence Insurance Name Policy Number Policy Salvador Covered Member ID Salvador Member ID Guarantor Name 09/09/2022 1 [facility] (MEDICAID HMO) [id number] 0003 Danielle Bergeron [id number] Danielle Bergeron 12/17/2022 1 [facility] (MEDICAID HMO) [id number] 0003 Danielle Bergeron [id number] Danielle Bergeron 04/20/2023 1 [facility] (MEDICAID HMO) [id number] 0003 Danielle Bergeron [id number] Danielle Bergeron 04/12/2024 1 [facility] (MEDICAID HMO) [id number] 0003 Danielle Bergeron [id number] Danielle Bergeron 04/30/2024 1 [facility] (MEDICAID HMO) [id number] 0003 Danielle Bergeron [id number] Danielle Bergeron Notes Date Note Type Note Provider Name and Address Organization Details Recorded Time 09/09/2022 text/html 51 y/o F with hx of HTN, HLD, and T2DM presenting for follow up of chronic conditions. Patient states since being seen last she has had a diabetic eye exam. She notes they told her she would need reading glasses, otherwise things looked okay. She has been following with an property management specialist for her diabetes. She states they wanted her to start back on Ozempic, but she has not been able to pick this up. She reports her blood sugars have been well controlled at home. Patient states her BP at home has been in the 110s/70s usually. She notes she has been working in her yard a lot and is trying to eat healthier. Patient has not yet had her annual lung cancer screening CT. Patient denies headache, blurry vision, sore throat, cough, SOB, chest pain, abdominal pain, or fever. Lillie Duff MD Attn: Accounting[address] [place], [phone], [facility] 09/22/2022 21:09:45 12/17/2022 text/html 52 y/o F with hx of HTN, HLD, and T2DM presenting for follow up of chronic conditions. Patient has no concerns today. She has been following with an property management specialist for her diabetes. Recently had her annual lung cancer screening CT. Patient denies headache, blurry vision, sore throat, cough, SOB, chest pain, abdominal pain, or fever. Lillie Duff MD Attn: [address]ing[address] [place], [address], [facility] 12/23/2022 22:19:30 04/20/2023 text/html transferring car e, no problems, htn, diabetes, hyperlipidemia, CATE, heart palpitations with activity, right hand reeves on fire and swollen, both hands, right hand worse, three months, thought was because of how she slept on it, putting it under cold water helps, last time it happened lasted three days, now it is better, baby sits, does not do anything with hands, better now, when gone it is resolved, other time it happened for one day, lately slight pain on right foot, slight tingling on right foot, not all the time, in one spot, smokes, has tried to quit before, was able to quit for a week, drinks soda, chest pain one or two months, smokes two packs, urinary frequency Kalani Morocho MD Attn: Accounting[address] [place], [address], [facility] 04/21/2023 09:15:20 04/12/2024 text/html gets so tired an d doesn't have energy, wakes up every morning with headache, pain is between eyes and underneath eyes, has been happening for about two weeks, it is pressure feeling, breathing okay, using Albuterol when overheated, doesn't use it that much, bought vegetables, made chicken, ride exercise bike for five minutes, next week try ten minutes, took medicine this morning with soda, drinks three sodas a day, wants to quit smoking, smokes two or three packs a day, mammogram, Kalani Morocho MD Attn: Accounting, [address] [place], [address], [facility] 04/18/2024 19:21:04 OBGyn Episode No OBEpisode recorded.
[2024-06-19 08:04] VITALS: BP 115/67; PULSE 76; RESP 20; TEMP 36.1; O2SAT 96; BMI 44.7
[2024-06-19] MEDS: LACTATED RINGERS 1,000 ML 150 ML IV CONT (08:11)
--- NOTE | 2024-06-19 08:17 | PM.HPGS ---
History of Present Illness History of Present Illness Consent: Risks, benefits, and alternatives have been discussed and questions answered. Patient agrees to proceed with procedure. Chief complaint: Hc colon polyps Narrative: Danielle Bergeron is a 53 year old female with colon polyp in 2021 Review of Systems Review of Systems: All systems reviewed & are unremarkable except as noted in HPI and below PMFSH Past Medical History Medical History (Updated 06/19/24 @ 08:17 by Angus Mohan MD) Adenomatous colon polyp Sleep apnea Type 2 diabetes mellitus HTN (hypertension) Hyperlipidemia Pulmonary emphysema Tobacco abuse Obese Hepatic steatosis Migraine Family History Family History Mother COPD (chronic obstructive pulmonary disease) Social History Social History Smoking packs per day: 1.5 Smoking cigarettes per day: 30.0 Years smoked: 27 Smoking pack-years: 40.50 Smoking status: Current every day smoker Tobacco type: cigarettes Living arrangements: with family Spiritual care concerns: No Meds Home Medications and Allergies Home Medications ?Medication ?Instructions ?Recorded ?Confirmed ?Type albuterol sulfate 90 mcg/actuation 2 puff inhalation Q4H PRN 01/30/21 06/04/24 History aerosol inhaler Shortness Of Breath omeprazole 20 mg capsule,delayed See Rx Instructions .Route 03/10/22 06/19/24 Rx release .COMPLEX #60 caps atorvastatin 20 mg tablet (Lipitor) 20 mg PO DAILY 04/08/22 06/19/24 History metformin 500 mg tablet 500 mg PO BID 04/08/22 06/19/24 History oxybutynin chloride 5 mg tablet 5 mg PO DAILY 05/19/22 06/19/24 History lisinopril 20 mg tablet 20 mg PO DAILY 06/04/24 06/19/24 History Allergies Allergy/AdvReac Type Severity Reaction Status Date / Time No Known Allergies Allergy Verified 06/19/24 08:03 Vital Signs Vital Signs - 24 hr 06/19/24 08:04 Temperature 96.9 F L Pulse Rate 76 Respiratory Rate 20 Pulse Oximetry 96 Oxygen Delivery Room Air Exam Const: General: comfortable and no acute distress HENMT: Face/Nose/Sinus: Normal nares present Eyes: General: appearance normal, both eyes and all related structures Neck: Neck: no JVD Resp: Auscultation: clear to auscultation bilaterally Cardio: Rate: regular rate Rhythm: regular rhythm GI: Inspection: non-distended GI Palp: Yes Soft to palpation Skin: General skin exam: normal color Neuro: General: gait normal Speech: normal speech Extrem: General: normal to inspection Psych: Mental Status: mental status grossly normal Assessment and Plan Assessment and plan (1) Adenomatous colon polyp: Code(s): D12.6 - Benign neoplasm of colon, unspecified Status: Acute Assessment and Plan: colonoscopy
--- NOTE | 2024-06-19 08:42 | P.PNAN_ITS ---
Anes - Initial Pre Proc Eval Procedure: Operation Date: 06/19/24 08:30 Proposed Procedures p Screening Colonoscopy - Angus Mohan MD Date/Time: 06/19/24 08:42 Surgeon: Angus Mohan MD Pre Op Diagnosis: Hc colon polyps Patient Data Age: 53 Gender: F Height: 1.55 m Weight: 107.4 kg Last Vital Signs Temp 96.9 F L 06/19/24 08:04 Pulse 76 06/19/24 08:04 Resp 20 06/19/24 08:04 BP 115/67 06/19/24 08:04 Pulse Ox 96 06/19/24 08:04 O2 Del Method Room Air 06/19/24 08:04 Allergies Allergy/AdvReac Type Severity Reaction Status Date / Time No Known Allergies Allergy Verified 06/19/24 08:03 Home Medications ?Medication ?Instructions ?Recorded ?Confirmed ?Type albuterol sulfate 90 mcg/actuation 2 puff inhalation Q4H PRN 01/30/21 06/04/24 History aerosol inhaler Shortness Of Breath omeprazole 20 mg capsule,delayed See Rx Instructions .Route 03/10/22 06/19/24 Rx release .COMPLEX #60 caps atorvastatin 20 mg tablet (Lipitor) 20 mg PO DAILY 04/08/22 06/19/24 History metformin 500 mg tablet 500 mg PO BID 04/08/22 06/19/24 History oxybutynin chloride 5 mg tablet 5 mg PO DAILY 05/19/22 06/19/24 History lisinopril 20 mg tablet 20 mg PO DAILY 06/04/24 06/19/24 History Patient hx anesthesia problems: none Family hx anesthesia problems: none Results Review: All pre-operative results and documents have been reviewed as part of the pre- operative evaluation. [facility] Past Medical History Medical History (Updated 06/19/24 @ 08:17 by Angus Mohan MD) Adenomatous colon polyp Sleep apnea Type 2 diabetes mellitus HTN (hypertension) Hyperlipidemia Pulmonary emphysema Tobacco abuse Obese Hepatic steatosis Migraine Family History Family History Mother COPD (chronic obstructive pulmonary disease) Social History Social History Smoking packs per day: 1.5 Smoking cigarettes per day: 30.0 Years smoked: 27 Smoking pack-years: 40.50 Smoking status: Current every day smoker Tobacco type: cigarettes Living arrangements: with family Spiritual care concerns: No Anes - Eval Final PreProcedure Day of Procedure 06/19/24 08:42 Patient weight: morbidly obese Heart: regular rate and rhythm Lungs: clear to auscultation Airway: Mallampati scale class III Neurological: alert and oriented Last oral intake: >/= 8 hours ASA classification: III Emergent: no Anesthetic plan: proceed Anesthesia type and monitoring: general GIVS and standard monitoring Results Review: All pre-operative results and documents have been reviewed as part of the pre- operative evaluation. Informed Consent: The patient's anesthetic plan and its attendant risks and benefits were discussed with the patient/family/POA. Questions were solicited and answers provided to the satisfaction of the patient/family/POA.
[2024-06-19 08:55] LABS: Glucose Point of Care 93 mg/dl (65-105)
[2024-06-19 09:15] VITALS: BP 123/75; PULSE 69; RESP 20; O2SAT 99
[2024-06-19 09:25] VITALS: BP 123/73; PULSE 60; RESP 20; O2SAT 100
[2024-06-19 09:32] VITALS: BP 118/77; PULSE 62; RESP 20; O2SAT 100
== END 2024-06-19 09:48 | disposition home or self-care (01) ==
PROVIDERS: Referring Provider Internal Medicine Gastroenterology; Visit Provider Internal Medicine Gastroenterology
PROC: 0DJD8ZZ Inspection of Lower Intestinal Tract, Via Natural or Artificial Opening Endoscopic (ICD-10-PCS; CPT 45378; principal; 2024-06-19 08:30)
DX: Z12.11 Encounter for screening for malignant neoplasm of colon (principal); D12.3 Benign neoplasm of transverse colon; K63.5 Polyp of colon; K57.30 Diverticulosis of large intestine without perforation or abscess without bleeding; E78.5 Hyperlipidemia, unspecified; I10 Essential (primary) hypertension; E11.9 Type 2 diabetes mellitus without complications; J43.9 Emphysema, unspecified; G47.30 Sleep apnea, unspecified; F17.210 Nicotine dependence, cigarettes, uncomplicated; E66.01 Morbid (severe) obesity due to excess calories; Z68.41 Body mass index [BMI] 40.0-44.9, adult; Z79.51 Long term (current) use of inhaled steroids; Z79.84 Long term (current) use of oral hypoglycemic drugs
CPT/HCPCS: 45385; 82948; 88305; J2003; J2704; J7120